=== PATIENT | female | born 1970 | race Caucasian/White ===

== ENCOUNTER 2018-01-16 16:16 | Inpatient (IN) | payer OTHER ==
--- NOTE | 2018-01-16 16:50 | PDOC ---
History of Present Illness - General Chief Complaint: Urinary Problem Stated Complaint: FEVER Time Seen by Provider: 01/16/18 16:33 History Source: Patient, Family - History of Present Illness Timing/Duration: reports: resolved prior to arrival Quality: reports: other (unable to describe) Past History - Past Medical History Allergies/Adverse Reactions: Allergies Allergy/AdvReac Type Severity Reaction Status Date / Time No Known Allergies Allergy Verified 01/16/18 16:32 Home Medications: Ambulatory Orders NK [No Known Home Medication] 01/16/18 - Suicide/Smoking/Psychosocial Hx Smoking History: Never smoked Have you smoked in the past 12 months: No Information on smoking cessation initiated: No Hx Alcohol Use: No Drug/Substance Use Hx: No Review of Systems - Review of Systems Constitutional: No: Chills, Fever ABD/GI: No: Blood Streaked Bowels, Constipated, Diarrhea, Nausea, Vomiting, Tarry Stools : No: Burning, Dysuria, Frequency, Flank Pain, Hematuria Musculoskeletal: No: Back Pain *Physical Exam - Vital Signs Last Vital Signs Temp Pulse Resp BP Pulse Ox 99.8 F H 82 16 121/69 100 01/16/18 16:27 01/16/18 16:27 01/16/18 16:27 01/16/18 16:27 01/16/18 16:27 - Physical Exam General Appearance: Yes: Appropriately Dressed. No: Apparent Distress HEENT: positive: Normal Voice Neck: positive: Supple Respiratory/Chest: negative: Respiratory Distress Gastrointestinal/Abdominal: positive: Normal Bowel Sounds, Soft. negative: Tender, Distended, Guarding Musculoskeletal: negative: CVA Tenderness Integumentary: positive: Dry, Warm Neurologic: positive: Fully Oriented, Alert, Normal Mood/Affect ED Treatment Course - LABORATORY CBC & Chemistry Diagram: 01/16/18 17:55 01/16/18 17:55 Medical Decision Making - Medical Decision Making 01/16/18 16:43 46 yo F, history of uterine cancer remotely, status post surgery, states she was dx w/ UTI 2 months ago at [facility] but stopped taking antibiotics after 4 days because "I didn't like it" per patient. States her dysuria did improve. Now presents with vague pelvic pain that started several hours ago and has since improved with tylenol. Denies any dysuria to me and no urinary frequency , hematuria, flank or back pain, nausea, vomiting, fever or chills. Is sexually active w/ only. No vag discharge or h/o STDs. States pain today was not similar to her prior UTI See exam R/o UTI s/p incompletely tx uti 2 months ago at [facility] Stable and well luisana w/ benign abd and no CVAT -ua/cx pending 01/16/18 17:23 UA negative. On reassessment, temperature now 102 F. Daughter now reports to me that patient's temperature was 104 F earlier today, but states they had forgotten to tell ED staff. Abdomen remains benign, but given documented fever , will place IV for labs and get CT scan 01/16/18 18:52 WBC of ~18. Pt transferred to main ED and signed out to Dr Dsouza pending CT r/o diverticulitis *DC/Admit/Observation/Transfer Diagnosis at time of Disposition: Pelvic pain - Referrals - Patient Instructions - Post Discharge Activity
[2018-01-16 17:01] LABS: HCG,QUALITATIVE URINE NEGATIVE
[2018-01-16 17:06] LABS: URINE APPEARANCE CLEAR; URINE BILIRUBIN NEGATIVE (<2.0 mg/dL); URINE COLOR STRAW; URINE GLUCOSE (UA) NEGATIVE (NEGATIVE); URINE KETONE NEGATIVE (NEGATIVE); URINE LEUK ESTERASE NEGATIVE (NEGATIVE); URINE NITRITE NEGATIVE (NEGATIVE); URINE PROTEIN NEGATIVE (NEGATIVE); URINE UROBILINOGEN NEGATIVE mg/dL (0.2-1.0)
[2018-01-16] MEDS ORDERED: IBUPROFEN 400 MG TABLET (FP) PO ONE ×2 (17:30→17:32)
[2018-01-16] MEDS ORDERED: SODIUM CHLORIDE 1,000 ML IV STA (17:32)
[2018-01-16 18:02] LABS: BASO % 0.3 % (0-2.0); EOS % 0.5 % (0-4.5); HEMOGLOBIN 13.7 GM/dL (10.7-15.3); MCH 24.5 pg (25.7-33.7); MCHC 32.5 g/dl (32.0-36.0); MEAN CELL VOLUME 75.2 fl (80-96); MEAN PLT VOLUME 7.6 fl (7.5-11.1); MONO % 3.9 % (3.8-10.2); NEUT % 86.3 % (42.8-82.8); PLATELET COUNT 244 K/MM3 (134-434); RBC 5.59 M/mm3 (3.60-5.2); RDW 15.1 % (11.6-15.6); WHITE BLOOD COUNT 15.8 K/mm3 (4.0-10.0)
[2018-01-16 18:28] LABS: ALBUMIN 3.9 g/dl (3.4-5.0); ALK PHOS 161 U/L (45-117); ANION GAP 9 (8-16); BILIRUBIN,TOTAL 0.3 mg/dL (0.2-1.0); BLOOD UREA NITROGEN 12 mg/dL (7-18); CHLORIDE 101 mmol/L (98-107); CO2 27 mmol/L (21-32); CREATININE 0.7 mg/dL (0.55-1.02); GLUCOSE,RANDOM 96 mg/dL (74-106); LIPASE 191 U/L (73-393); SGPT/ALT 48 U/L (12-78); SODIUM 137 mmol/L (136-145)
[2018-01-16 18:36] LABS: POTASSIUM 4.2 mmol/L (3.5-5.1); SGOT/AST 41 U/L (15-37)
--- NOTE | 2018-01-16 19:21 | PDOC ---
History of Present Illness - General Chief Complaint: Urinary Problem Stated Complaint: FEVER Time Seen by Provider: 01/16/18 16:33 - History of Present Illness Initial Comments: 01/16/18 19:59 47 yo F with h/o uterine cancer s/p partial hysterectomy (15 years ago), who p/ w lower abdominal and pelvic pain. 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 No identifiable triggers or alleviators. Pain now resolved. Fevers x 1 day, with Tmax 104 oral at home. Recent UTI x 2 months ago at [facility] with incomplete antibiotic course d/t medication non compliance. Patient denies N/V, CP, SOB, urinary complaints, hematuria, vaginal discharge/ bleeding, dyspareurnia, diarrhea, constipation, BPR, lightheadedness, weakness, sensory changes. PMHx: as noted above ROS: as noted SHx: Denies Etoh, IVDA, tobacco. Denies h/o STI. Allergies: NKDA Past History - Past Medical History Allergies/Adverse Reactions: Allergies Allergy/AdvReac Type Severity Reaction Status Date / Time No Known Allergies Allergy Verified 01/16/18 16:32 Home Medications: Ambulatory Orders NK [No Known Home Medication] 01/16/18 - Suicide/Smoking/Psychosocial Hx Smoking History: Never smoked Have you smoked in the past 12 months: No Information on smoking cessation initiated: No Hx Alcohol Use: No Drug/Substance Use Hx: No Review of Systems - Review of Systems Comments:: 01/16/18 20:08 GENERAL/CONSTITUTIONAL: No fever or chills. No weakness. HEAD, EYES, EARS, NOSE AND THROAT: No change in vision. No ear pain or discharge. No sore throat. CARDIOVASCULAR: No chest pain or shortness of breath RESPIRATORY: No cough, wheezing, or hemoptysis. GASTROINTESTINAL: + Abdominal pain. No nausea, vomiting, diarrhea or constipation. GENITOURINARY: No dysuria, frequency, or change in urination. MUSCULOSKELETAL: No joint or muscle swelling or pain. No neck or back pain. SKIN: No rash NEUROLOGIC: No headache, vertigo, loss of consciousness, or change in strength/ sensation. ENDOCRINE: No increased thirst. No abnormal weight change HEMATOLOGIC/LYMPHATIC: No anemia, easy bleeding, or history of blood clots. ALLERGIC/IMMUNOLOGIC: No hives or skin allergy. *Physical Exam - Vital Signs Last Vital Signs Temp Pulse Resp BP Pulse Ox 102.7 F H 82 16 121/69 100 01/16/18 17:55 01/16/18 16:27 01/16/18 16:27 01/16/18 16:27 01/16/18 16:27 - Physical Exam Comments: 01/16/18 20:08 GENERAL: Awake, alert, and fully oriented, in no acute distress HEAD: No signs of trauma, normocephalic, atraumatic EYES: PERRLA, EOMI, sclera anicteric, conjunctiva clear ENT: Hearing grossly normal, nares patent, oropharynx clear without exudates. Moist mucosa NECK: Normal ROM, supple, no lymphadenopathy, JVD, or masses LUNGS: No distress, speaks full sentences, clear to auscultation bilaterally HEART: Regular rate and rhythm, normal S1 and S2, no murmurs, rubs or gallops, peripheral pulses normal and equal bilaterally. ABDOMEN: Soft, nontender, normoactive bowel sounds. No guarding, no rebound. No masses. Neg CVA ttp. EXTREMITIES : Normal inspection, Normal range of motion, no edema. No clubbing or cyanosis. SKIN: Warm, Dry, normal turgor, no rashes or lesions noted ED Treatment Course - LABORATORY CBC & Chemistry Diagram: 01/16/18 17:55 01/16/18 17:55 - ADDITIONAL ORDERS Additional order review: Laboratory Results 01/16/18 01/16/18 17:55 16:40 Sodium 137 Potassium 4.2 Chloride 101 Carbon Dioxide 27 Anion Gap 9 BUN 12 Creatinine 0.7 Creat Clearance w eGFR > 60 Random Glucose 96 Calcium 9.0 Total Bilirubin 0.3 AST 41 H ALT 48 Alkaline Phosphatase 161 H Total Protein 9.0 H Albumin 3.9 Lipase 191 Urine Color Straw Urine Appearance Clear Urine pH 7.0 Ur Specific [place] 1.010 Urine Protein Negative Urine Glucose (UA) Negative Urine Ketones Negative Urine Blood Negative Urine Nitrite Negative Urine Bilirubin Negative Urine Urobilinogen Negative Ur Leukocyte Esterase Negative Urine HCG, Qual Negative 01/16/18 17:55 RBC 5.59 H MCV 75.2 L MCHC 32.5 RDW 15.1 MPV 7.6 Neutrophils % 86.3 H Lymphocytes % 9.0 Monocytes % 3.9 Eosinophils % 0.5 Basophils % 0.3 - Medications Given in the ED: ED Medications Discontinued Medications Generic Name Dose Route Start Last Admin Trade Name Guillermoq PRN Reason Stop Dose Admin Sodium Chloride 1,000 mls @ 1,000 mls/hr 01/16/18 17:32 01/16/18 18:31 Normal Saline - IV 01/16/18 18:31 1,000 mls/hr ASDIR STA Administration Ibuprofen 800 mg 01/16/18 17:30 01/16/18 17:52 Motrin - PO 01/16/18 17:31 800 mg ONCE ONE Administration Medical Decision Making - Medical Decision Making 01/16/18 20:39 47 yo F with h/o uterine cancer s/p partial hysterectomy, who p/w lower abdominal pain and pelvic pain. Temp 102.7, vitals otherwise wnl. Absent abdominal ttp. Will consider cystitis, ovarian torsion, diverticulitis, appendicitis, colitis, malignancy. Ed Course: LA, CBC, CMP UA, Urine Cx. 01/16/18 20:42 WBC: 15.8 UA: Neg CMP: Unremarkable 01/16/18 20:43 CT AP Unremarkable. + gallstones. 01/16/18 22:18 EKG: NSR with absent SHIRA, STD, or TWI. Nml interval duration and axis. 01/17/18 01:09 TVUS: Unremarkable RUQ U/S:Multiple gallstones without evidence of cholecystitis 01/17/18 02:30 Patient vommiting non bloody, bilious emesis. Continued abdominal pain Patient admitted to med/surg obs. Ifudu. *DC/Admit/Observation/Transfer Diagnosis at time of Disposition: Severe systemic inflammatory response syndrome (SIRS), Abdominal pain with vomiting Abdominal pain Qualifiers: Abdominal location: lower abdomen, unspecified Qualified Code(s): R10.30 - Lower abdominal pain, unspecified - Discharge Dispostion Decision to Admit order: Yes - Referrals - Patient Instructions - Post Discharge Activity
[2018-01-16] MEDS ORDERED: SODIUM CHLORIDE 0.9% 1000 ML INFUS.BAG IV STA (20:46)
[2018-01-16 22:40] LABS: VENOUS PC02 46.7 mmHg (38-52); VENOUS PH 7.31 (7.32-7.42); VENOUS PO2 28.8 mmHg (28-48)
[2018-01-16 22:59] LABS: INR 1.19 (0.82-1.09); PROTHROMBIN TIME (PATIENT) 13.5 SEC (9.7-13.0)
[2018-01-16 23:01] LABS: ACTIVATED PTT 32.6 SECONDS (25.2-36.5)
[2018-01-16] MEDS ORDERED: ONDANSETRON 4 MG/2 ML VIAL IVPB ONE (23:43)
[2018-01-16] MEDS ORDERED: ONDANSETRON 4 MG/2 ML VIAL ONE (23:51)
--- NOTE | 2018-01-17 01:58 | PDOC ---
Attending Attestation - Resident Resident Name: Vickey Dsouza - ED Attending Attestation I have performed the following: I have examined & evaluated the patient, The case was reviewed & discussed with the resident, I agree w/resident's findings & plan, Exceptions are as noted - HPI HPI: 01/17/18 01:49 47 yo female p/w fever and vomiting and lower abdominal pain head ncat neck supple lungs cta b/l cvs [id number] abd no guarding or rebound at this time neuro alert and conversant,no gross focal deficits - Physicial Exam PE: 01/17/18 17:00 wnwd 47 yo female who had fever ,abd pain and vomiting head ncat neck supple lungs cta b/l cvs [id number] abd no rebound,no guarding ext no e/c/c neuro axox3,no gross focal neruo deficits - Medical Decision Making 01/17/18 16:40 CONCERN FOR CHOLECYSTITIS,PT W VOMITING AND FEVER,ADMITTED
--- NOTE | 2018-01-17 02:38 | PN ---
Teaching Attending Note Name of Resident: Flaquito Doss ATTENDING PHYSICIAN STATEMENT I saw and evaluated the patient. I reviewed the resident's note and discussed the case with the resident. I agree with the resident's findings and plan as documented. SUBJECTIVE: Patient is a 47 year old woman with history of uterine cancer s/p partial hysterectomy (15 years ago), who presents with lower abdominal and pelvic pain. 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 No identifiable triggers or alleviators. Pain now resolved. Fevers x 1 day, with Tmax of 104 at home. Recent UTI x 2 months ago at [facility] with incomplete antibiotic course due to medication non compliance. She owns a cat and comes in frequent contact with her daughter' s dog. Patient denies nausea, CP, SOB, urinary complaints, hematuria, vaginal discharge/bleeding, dyspareurnia, constipation, BPR, lightheadedness, weakness, sensory changes. In the ER, she vomited once and had one loose foul smelling bowel movement. OBJECTIVE: Obese, alert and in no acute distress Vital Signs Period Temp Pulse Resp BP Sys/Tripp Pulse Ox Last 24 Hr 99.8 F-102.7 F 82 16 121/69 100 HEENT: No Jaundice, eye redness or discharge, PERRLA, EOMI. Normocephalic, atraumatic. External ears are normal and hearing is grossly intact. No nasal discharge. Neck: Supple, nontender. No palpable adenopathy or thyromegaly. No JVD Chest: Good effort. Clear to auscultation and percussion. Heart: Regular. No S3, rub or murmur Abdomen: Not distended, soft, lower abdominal tenderness (L>R); no HSM. No rebound or guarding. Normoactive bowel sounds. Ext: Peripheral pulses intact. No leg edema. Papular rash in both roins and axilla. Skin: Warm and dry. No petechiae, rash or ecchymosis. Neuro: Alert. Oriented x3. CN 2-12 grossly intact. Sensation grossly intact in all four extremities and DTR are symmetric. Home Medications Medication Instructions Recorded NK [No Known Home Medication] 01/16/18 Abnormal Lab Results 01/16/18 01/16/18 01/16/18 17:55 17:55 22:30 WBC 15.8 H RBC 5.59 H MCV 75.2 L MCH 24.5 L Neutrophils % 86.3 H PT with INR 13.50 H INR 1.19 H VBG pH AST 41 H Alkaline Phosphatase 161 H Total Protein 9.0 H 01/16/18 22:30 WBC RBC MCV MCH Neutrophils % PT with INR INR VBG pH 7.31 L AST Alkaline Phosphatase Total Protein ASSESSMENT AND PLAN: 1. SIRS - Source of infection is unclear. CT scan shows non obstructing gall stones and cholestasis and transvaginal ultrasound is unrevealing. LFTs are abnormal. Early cholecystitis, less likely cholangitis or gastroenteritis are possible culprits. Will send blood cultures, hepatitis serology (A, B, C), Lyme studies, stool for analyses including ova, parasites and C. Diff. Treat with Flagyl 500 mg IV q 8 ours and Levofloxacin 500 mg IV qd, IV NS at 75 ml/hour and trend LFTs. Consult GI and ID. Refer to Dermatology for groin and axillary rash upon discharge. Rash may be Intertrigo and she will be treated with mycostatin cream. 2. Obesity - Will provide patient all the necessary assistance, counseling and positive reinforcement to facilitate weight loss. Consult driver service technician. 3. DVT prophylaxis - Heparin 5000u sq tid. 4. Advance directives - Full code
--- NOTE | 2018-01-17 04:39 | HP ---
CHIEF COMPLAINT: Abdominal pain PCP: HISTORY OF PRESENT ILLNESS: 47 y/o female with PMH uterine cancer with partial oopherectomy 15 years ago, presents with complaint of abdominal pain. States pain began today, sudden in onset with associated fevers (104 measured at home), chills, billious vomiting, and one episode of watery diarrhea that was yellow-brown, and malodorous in the ED. Described as a "burning and stinging" spasmodic pain. Pain is diffuse within lower abdomen and radiates to her pelvis B/L. Denies prior occurrence of this pain. Took one tablet of Tylenol (unknown dosage) which was not palliative. Patient admits that abdominal pain resolved while in ED. Denies dizzyness, shortness of breath, palpitations, chest pain, constipation. ER course was notable for: (1) Iboprofen, Zofran (2) EKG, CXR, RUQ U/S, CT abdomen/ pelvis, transvainal US, UA, blood cultures, (3) Recent Travel: PAST MEDICAL HISTORY: Per HPI PAST SURGICAL HISTORY: Per HPI Social History: Smoking: denies Alcohol: denies Drugs: denies Family History: Allergies NKDA No Known Allergies Allergy (Verified 01/16/18 16:32) HOME MEDICATIONS: Home Medications Medication Instructions Recorded NK [No Known Home Medication] 01/16/18 REVIEW OF SYSTEMS As per HPI PHYSICAL EXAMINATION Vital Signs - 24 hr 01/16/18 01/16/18 01/17/18 16:27 17:55 04:01 Temperature 99.8 F H 102.7 F H 97.9 F Pulse Rate 82 Pulse Rate [ 66 Left Radial] Respiratory 16 16 Rate Blood Pressure 121/69 Blood Pressure 115/58 [Right Arm] O2 Sat by Pulse 100 100 Oximetry (%) GENERAL: Awake, alert, and fully oriented, in no acute distress. HEAD: Normal with no signs of trauma. EYES: Pupils equal, round and reactive to light, extraocular movements intact, sclera anicteric. EARS, NOSE, THROAT: Oropharynx clear without exudates. Moist mucous membranes. LUNGS: Breath sounds equal, clear to auscultation bilaterally. No wheezes, and no crackles. No accessory muscle use. HEART: Regular rate and rhythm, normal S1 and S2 without murmur, rub or gallop. ABDOMEN: Soft, not distended, normoactive bowel sounds. Tender to palpation LLQ , with referred tenderness to LLQ when palpating abdomen. No guarding, no rebound. No hepatomegaly or splenomegaly. MUSCULOSKELETAL: Normal range of motion at all joints. No bony deformities or tenderness. EXTREMITIES: 2+ pulses, warm, well-perfused. No cyanosis. No peripheral edema. NEUROLOGICAL: Cranial nerves II-XII intact. Normal speech. PSYCHIATRIC: Cooperative. Appropriate mood and affect. SKIN: Dark brown papules (?seborrheic keratosis) on B/L groin and axillae. Laboratory Results - last 24 hr 01/16/18 01/16/18 01/16/18 16:40 17:55 17:55 WBC 15.8 H RBC 5.59 H Hgb 13.7 Hct 42.0 MCV 75.2 L MCH 24.5 L MCHC 32.5 RDW 15.1 Plt Count 244 MPV 7.6 Absolute Neuts (auto) 13.6 Neutrophils % 86.3 H Lymphocytes % 9.0 Monocytes % 3.9 Eosinophils % 0.5 Basophils % 0.3 Nucleated RBC % 0 PT with INR INR PTT (Actin FS) VBG pH POC VBG pCO2 POC VBG pO2 Mixed VBG HCO3 Sodium 137 Potassium 4.2 Chloride 101 Carbon Dioxide 27 Anion Gap 9 BUN 12 Creatinine 0.7 Creat Clearance w eGFR > 60 Random Glucose 96 Lactic Acid Calcium 9.0 Total Bilirubin 0.3 AST 41 H ALT 48 Alkaline Phosphatase 161 H Troponin I Total Protein 9.0 H Albumin 3.9 Lipase 191 Urine Color Straw Urine Appearance Clear Urine pH 7.0 Ur Specific [place] 1.010 Urine Protein Negative Urine Glucose (UA) Negative Urine Ketones Negative Urine Blood Negative Urine Nitrite Negative Urine Bilirubin Negative Urine Urobilinogen Negative Ur Leukocyte Esterase Negative Urine HCG, Qual Negative 01/16/18 01/16/18 01/16/18 22:30 22:30 22:30 WBC RBC Hgb Hct MCV MCH MCHC RDW Plt Count MPV Absolute Neuts (auto) Neutrophils % Lymphocytes % Monocytes % Eosinophils % Basophils % Nucleated RBC % PT with INR 13.50 H INR 1.19 H PTT (Actin FS) 32.6 VBG pH 7.31 L POC VBG pCO2 46.7 POC VBG pO2 28.8 Mixed VBG HCO3 23.0 Sodium Potassium Chloride Carbon Dioxide Anion Gap BUN Creatinine Creat Clearance w eGFR Random Glucose Lactic Acid 1.2 Calcium Total Bilirubin AST ALT Alkaline Phosphatase Troponin I Total Protein Albumin Lipase Urine Color Urine Appearance Urine pH Ur Specific [place] Urine Protein Urine Glucose (UA) Urine Ketones Urine Blood Urine Nitrite Urine Bilirubin Urine Urobilinogen Ur Leukocyte Esterase Urine HCG, Qual 01/16/18 22:30 WBC RBC Hgb Hct MCV MCH MCHC RDW Plt Count MPV Absolute Neuts (auto) Neutrophils % Lymphocytes % Monocytes % Eosinophils % Basophils % Nucleated RBC % PT with INR INR PTT (Actin FS) VBG pH POC VBG pCO2 POC VBG pO2 Mixed VBG HCO3 Sodium Potassium Chloride Carbon Dioxide Anion Gap BUN Creatinine Creat Clearance w eGFR Random Glucose Lactic Acid Calcium Total Bilirubin AST ALT Alkaline Phosphatase Troponin I < 0.02 Total Protein Albumin Lipase Urine Color Urine Appearance Urine pH Ur Specific [place] Urine Protein Urine Glucose (UA) Urine Ketones Urine Blood Urine Nitrite Urine Bilirubin Urine Urobilinogen Ur Leukocyte Esterase Urine HCG, Qual ASSESSMENT/PLAN: 47 y/o female with PMH uterine cancer with partial oopherectomy 15 years ago, presents with complaint of abdominal pain. SIRS likely secondary to unclear etiology -WBC 5.8, Temp 102.7, BP 121/69, RR 16 -AST 41, ALT 48, Lactate 1.2 -CT abdomen/pelvis showed non obstructive cholecystitis -RUQ U/S shows liver 17.6 cm in length, gallbladder stones, CBD 6mm -Start Flagyl and Levoquin -IV NS 75ml/ hr -R/O hepatitis- f/u Hep A, B, C studies -Stool for ova, parasites, c.diff -F/U Lyme studies -GI consult -ID consult -Trend WBC, LFT New onset ?Seborrheic keratosis -Consider dermatology consult as outpatient Obesity -Sailing Instructor consult requested Propylaxis -Heparin 5000u subq TID FEN -IV NS 75ml/ hr -No electrolyte abnormalities at this time -NPO Advance directives: Full code Disposition: Admit to medical surgical floor Case discussed with insulation applicator attending Visit type - Emergency Visit Emergency Visit: Yes ED Registration Date: 01/17/18 Care time: The patient presented to the Emergency Department on the above date and was hospitalized for further evaluation of their emergent condition. - New Patient This patient is new to me today: Yes Date on this admission: 01/17/18 - Critical Care Critical Care patient: No Hospitalist Screening - Colonoscopy Questionnaire Colonoscopy Questionnaire: Colonoscopy Questionnaire - Patient: 50 - 75 years old and never had a screening colonoscopy: Unknown History of colon or rectal polyps, or CA: Unknown History of IBD, Crohn's disease or UC: Unknown History of abdominal radiation therapy as a child: Unknown - Relative: 1 with colon or rectal CA, or polyps at age 60 or younger: Unknown Colon or rectal CA diagnosed at age 45 or younger: Unknown Multiple relatives with colon or rectal CA: Unknown - Outcome: Screening Result: Negative Screen
[2018-01-17] MEDS: SODIUM CHLORIDE 1,000 ML IV SCH (05:30)
[2018-01-17] MEDS: HEPARIN NA (PORCINE) 5,000 UNITS/ML 1ML VIAL SQ SCH ×4 (06:05→21:06)
[2018-01-17] MEDS ORDERED: HEPARIN NA (PORCINE) 5,000 UNITS/ML 1ML VIAL ONE (06:12)
[2018-01-17] MEDS ORDERED: ACETAMINOPHEN 325 MG TABLET (FP) ONE (06:12)
[2018-01-17] MEDS ORDERED: ACETAMINOPHEN 325 MG TABLET (FP) PO PRN ×2 (08:58→09:00)
[2018-01-17 10:14] LABS: BASO % 0.2 % (0-2.0); HEMATOCRIT 34.3 % (32.4-45.2); HEMOGLOBIN 11.1 GM/dL (10.7-15.3); LYMPH % 12.5 % (8-40); MCH 24.7 pg (25.7-33.7); MCHC 32.3 g/dl (32.0-36.0); MEAN CELL VOLUME 76.4 fl (80-96); MEAN PLT VOLUME 7.7 fl (7.5-11.1); MONO % 3.2 % (3.8-10.2); NEUT % 84.1 % (42.8-82.8); PLATELET COUNT 200 K/MM3 (134-434); RBC 4.49 M/mm3 (3.60-5.2); RDW 15.3 % (11.6-15.6)
[2018-01-17 10:54] LABS: ANION GAP 8 (8-16); BLOOD UREA NITROGEN 6 mg/dL (7-18); CHLORIDE 109 mmol/L (98-107); CO2 24 mmol/L (21-32); GLUCOSE,RANDOM 99 mg/dL (74-106); POTASSIUM 3.5 mmol/L (3.5-5.1); SODIUM 141 mmol/L (136-145)
[2018-01-17 10:58] LABS: ALK PHOS 122 U/L (45-117); BILIRUBIN,TOTAL 0.4 mg/dL (0.2-1.0); CREATININE 0.5 mg/dL (0.55-1.02); SGOT/AST 35 U/L (15-37); SGPT/ALT 58 U/L (12-78)
--- NOTE | 2018-01-17 11:25 | EKG ---
Test Reason : Blood Pressure : / mmHG Vent. Rate : 065 BPM Atrial Rate : 065 BPM P-R Int : 150 ms QRS Dur : 082 ms QT Int : 442 ms P-R-T Axes : 038 074 051 degrees QTc Int : 459 ms NORMAL SINUS RHYTHM NORMAL ECG NO PREVIOUS ECGS AVAILABLE Confirmed by LORENZO ARAUZ, MARISSA ([id number]) on 01/17/2018 11:25:26 AM Referred By: Confirmed By:MARISSA VENTURA MD
--- NOTE | 2018-01-17 13:54 | PN ---
Physical Exam: SUBJECTIVE: Patient is a 47 y/o female with a history of uterine Ca and partial oopherectomy who presents with sepsis 2/2 to cholecystitis vs. UTI. Patient reports shes feeling better, denies fever, chills, nausea, or vomiting. She reports she has a headache. Patient denies any traveling or any change in diet. OBJECTIVE: Vital Signs Period Temp Pulse Resp BP Sys/Tripp Pulse Ox Last 24 Hr 97.9 F-102.7 F 66-82 16-16 114-121/58-69 98-100 GENERAL: The patient is awake, alert, and fully oriented, in no acute distress. EYES: PERRL, extraocular movements intact, NECK: Trachea midline, full range of motion, LUNGS: Breath sounds equal, clear to auscultation bilaterally HEART: Regular rate and rhythm, ABDOMEN: Soft, nontender, nondistended, normoactive bowel sounds EXTREMITIES: 2+ pulses, warm, well-perfused, no edema. SKIN: Warm, dry, normal turgor, no rashes or lesions noted Laboratory Results - last 24 hr 01/16/18 01/16/18 01/16/18 16:40 17:55 17:55 WBC 15.8 H RBC 5.59 H Hgb 13.7 Hct 42.0 MCV 75.2 L MCH 24.5 L MCHC 32.5 RDW 15.1 Plt Count 244 MPV 7.6 Absolute Neuts (auto) 13.6 Neutrophils % 86.3 H Lymphocytes % 9.0 Monocytes % 3.9 Eosinophils % 0.5 Basophils % 0.3 Nucleated RBC % 0 PT with INR INR PTT (Actin FS) VBG pH POC VBG pCO2 POC VBG pO2 Mixed VBG HCO3 Sodium 137 Potassium 4.2 Chloride 101 Carbon Dioxide 27 Anion Gap 9 BUN 12 Creatinine 0.7 Creat Clearance w eGFR > 60 Random Glucose 96 Lactic Acid Calcium 9.0 Total Bilirubin 0.3 AST 41 H ALT 48 Alkaline Phosphatase 161 H Troponin I Total Protein 9.0 H Albumin 3.9 Lipase 191 Urine Color Straw Urine Appearance Clear Urine pH 7.0 Ur Specific [place] 1.010 Urine Protein Negative Urine Glucose (UA) Negative Urine Ketones Negative Urine Blood Negative Urine Nitrite Negative Urine Bilirubin Negative Urine Urobilinogen Negative Ur Leukocyte Esterase Negative Urine HCG, Qual Negative 01/16/18 01/16/18 01/16/18 22:30 22:30 22:30 WBC RBC Hgb Hct MCV MCH MCHC RDW Plt Count MPV Absolute Neuts (auto) Neutrophils % Lymphocytes % Monocytes % Eosinophils % Basophils % Nucleated RBC % PT with INR 13.50 H INR 1.19 H PTT (Actin FS) 32.6 VBG pH 7.31 L POC VBG pCO2 46.7 POC VBG pO2 28.8 Mixed VBG HCO3 23.0 Sodium Potassium Chloride Carbon Dioxide Anion Gap BUN Creatinine Creat Clearance w eGFR Random Glucose Lactic Acid 1.2 Calcium Total Bilirubin AST ALT Alkaline Phosphatase Troponin I Total Protein Albumin Lipase Urine Color Urine Appearance Urine pH Ur Specific [place] Urine Protein Urine Glucose (UA) Urine Ketones Urine Blood Urine Nitrite Urine Bilirubin Urine Urobilinogen Ur Leukocyte Esterase Urine HCG, Qual 01/16/18 01/17/18 01/17/18 22:30 09:30 09:30 WBC 10.0 RBC 4.49 Hgb 11.1 Hct 34.3 D MCV 76.4 L MCH 24.7 L MCHC 32.3 RDW 15.3 Plt Count 200 MPV 7.7 Absolute Neuts (auto) 8.4 Neutrophils % 84.1 H Lymphocytes % 12.5 D Monocytes % 3.2 L Eosinophils % 0.0 D Basophils % 0.2 Nucleated RBC % 0 PT with INR INR PTT (Actin FS) VBG pH POC VBG pCO2 POC VBG pO2 Mixed VBG HCO3 Sodium 141 Potassium 3.5 Chloride 109 H Carbon Dioxide 24 Anion Gap 8 BUN 6 L Creatinine 0.5 L Creat Clearance w eGFR > 60 Random Glucose 99 Lactic Acid Calcium 8.0 L Total Bilirubin 0.4 AST 35 ALT 58 Alkaline Phosphatase 122 H D Troponin I < 0.02 Total Protein 7.0 D Albumin 3.0 L Lipase Urine Color Urine Appearance Urine pH Ur Specific [place] Urine Protein Urine Glucose (UA) Urine Ketones Urine Blood Urine Nitrite Urine Bilirubin Urine Urobilinogen Ur Leukocyte Esterase Urine HCG, Qual Active Medications Generic Name Dose Route Start Last Admin Trade Name Freq PRN Reason Stop Dose Admin Acetaminophen 650 mg 01/17/18 09:00 Tylenol - PO Q6H PRN Fever Or Pain Heparin Sodium (Porcine) 5,000 unit 01/17/18 06:00 01/17/18 06:05 Heparin - SQ 5,000 unit TID ANAY Administration Sodium Chloride 1,000 mls @ 75 mls/hr 01/17/18 04:30 07/23/18 05:30 Normal Saline - IV 75 mls/hr ASDIR ANAY Administration Metronidazole 500 mg in 100 mls @ 100 mls/hr 01/17/18 05:15 01/17/18 10:02 Flagyl 500mg Premixed Ivpb - IVPB 100 mls/hr Q8H-IV ANAY Administration Levofloxacin 500 mg in 100 mls @ 100 mls/hr 01/17/18 10:00 01/17/18 13:02 Levaquin 500 Mg Premixed Ivpb - IVPB 100 mls/hr DAILY ANAY Administration Protocol ASSESSMENT/PLAN: Patient is a 47 y/o female with a history of uterine Ca and partial oopherectomy who presents with sepsis 2/2 to cholecystitis vs. UTI. #sepsis 2/2 to UTI vs gastritis vs cholecystisis - WBC: 10 - afebrile - f/u HIDA scan - continue Flagyl 500 mg and Levaquin 500 mg - f/u hepatitis pannel, Lyme disease - Cx positive, organism pending - pelvic US: no fibroids, no R ovary - abd US: liver mildly fatty - CT abd/ pelvis : cholelithiasis, sludge present - history of frequent UTI's. most recent 2 months ago, UA negative - HIDA scan: no filling of the gallbladder, 2/2 to acute cholecystits or severe cholecystis - f/u surgery consult Dr. Zavaleta #DVT ppx - heparin TID #FEN - NS @ 75 Dispo: Visit type - Emergency Visit Emergency Visit: Yes ED Registration Date: 01/17/18 Care time: The patient presented to the Emergency Department on the above date and was hospitalized for further evaluation of their emergent condition. - New Patient This patient is new to me today: Yes Date on this admission: 01/17/18 - Critical Care Critical Care patient: No
--- NOTE | 2018-01-17 15:13 | PN ---
Progress Note (short form) - Note Progress Note: ID consult dictated Fever/SIRS unclear source sudden onset high grade fever with abdominal pain yesterday afternoon abdominal pain has resolved vomiting in ED, now resolved no diarrhea no travel no sick contacts w/u to date leukocytosis fever improved sono with cholelithiasis ct scan abd/pelvis and hida scan pending cultures rocephin/flagyl would try to avoid quinolones if possible further reccd to follow Problem List - Problems (1) Severe systemic inflammatory response syndrome (SIRS) Code(s): R65.10 - SIRS OF NON-INFECTIOUS ORIGIN W/O ACUTE ORGAN DYSFUNCTION (2) Pelvic pain Code(s): R10.2 - PELVIC AND PERINEAL PAIN
--- NOTE | 2018-01-17 16:57 | CONS ---
INFECTIOUS DISEASE CONSULTATION REQUESTED BY: Hospitalist Service DATE OF CONSULTATION: DATE OF DICTATION: 01/17/2018 HISTORY OF PRESENT ILLNESS: This is a 47-year-old woman with past medical history of uterine cancer. She is status post partial hysterectomy 15 years ago. Yesterday afternoon after lunch she developed the sudden onset of fever and abdominal pain. The family reports fever as high at 104 at home. They brought her to the emergency room. She had several episodes of vomiting, had abdominal pain. Vomiting resolved. She had no diarrhea. She denies any dysuria. She has no headache. She otherwise feels well. She was made n.p.o. and abdominal workup was initiated. Her white count was noted to be 15,000. She had a CAT scan of her abdomen and pelvis, the results of which are pending. She had a sonogram which showed cholelithiasis. She just returned from HIDA scan, the results of which are pending. She had a transvaginal ultrasound as well that was unremarkable and she had a chest x-ray that was unremarkable. She was started on Levaquin and Flagyl and I am asked to see her for further recommendations. Culture has been sent. She is currently resting comfortably. Apparently her family brought her food to eat after the HIDA scan and she tolerated food. She has no further vomiting or abdominal pain. PAST MEDICAL HISTORY: Notable for history of UTI in the past. She has a history of uterine cancer. There is no history of any diabetes. SURGICAL HISTORY: Notable for partial hysterectomy. ALLERGIES: She has no known drug allergies. MEDICATIONS: She takes no medications. She does not have a doctor. SOCIAL HISTORY: She is originally from [place]. 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 REVIEW OF SYSTEMS: Her vomiting has stopped. Abdominal pain has resolved. PHYSICAL EXAM: General: She is awake and alert, resting comfortably. Vital Signs: Temperature is 99.3, T-Max 102.7. Pulse of 78. Blood pressure 114/58. Respiratory rate 16. She is saturating 98% on room air. HEENT: She is normocephalic. Eyes anicteric. Neck: Supple. Lungs: Clear to auscultation. Heart: Regular rate and rhythm. Abdomen: Soft, nontender. She has no pelvic or upper quadrant pain. Extremities: Without edema. STUDIES: White count on admission was 15.8, this morning is 10. Hemoglobin is 11.1, platelet count 200,000. BUN 6, creatinine 0.5. LFTs are normal except for an alkaline phosphatase of 122, which is improved from 161 on admission. Urinalysis is negative. Blood cultures and urine cultures are pending. Imaging as previous stated. SUMMARY: This is a 47-year-old woman with fever, systemic inflammatory response system (SIRS) but unclear of the source. Workup is in progress. We are awaiting CAT scan and HIDA scan. Will cover her with Rocephin and Flagyl for intraabdominal coverage. We will try to avoid quinolones if possible. Further recommendations to follow. Maria Guadalupe HARO/[id number]
--- NOTE | 2018-01-17 18:47 | PN ---
Teaching Attending Note Name of Resident: Felicia Brand ATTENDING PHYSICIAN STATEMENT I saw and evaluated the patient. I reviewed the resident's note and discussed the case with the resident. I agree with the resident's findings and plan as documented. SUBJECTIVE: Patient is comfortbale , felt better after eating a hambergur. OBJECTIVE: Vital Signs Temperature 99.4 F 01/17/18 15:22 Pulse Rate 66 01/17/18 15:22 Respiratory Rate 20 01/17/18 16:53 Blood Pressure 97/54 01/17/18 15:22 O2 Sat by Pulse Oximetry (%) 98 01/17/18 16:53 CBCD WBC 10.0 K/mm3 (4.0-10.0) 01/17/18 09:30 RBC 4.49 M/mm3 (3.60-5.2) 01/17/18 09:30 Hgb 11.1 GM/dL (10.7-15.3) 01/17/18 09:30 Hct 34.3 % (32.4-45.2) D 01/17/18 09:30 MCV 76.4 fl (80-96) L 01/17/18 09:30 MCHC 32.3 g/dl (32.0-36.0) 01/17/18 09:30 RDW 15.3 % (11.6-15.6) 01/17/18 09:30 Plt Count 200 K/MM3 (134-434) 01/17/18 09:30 MPV 7.7 fl (7.5-11.1) 01/17/18 09:30 CMP Sodium 141 mmol/L (136-145) 01/17/18 09:30 Potassium 3.5 mmol/L (3.5-5.1) 01/17/18 09:30 Chloride 109 mmol/L (98-107) H 01/17/18 09:30 Carbon Dioxide 24 mmol/L (21-32) 01/17/18 09:30 Anion Gap 8 (8-16) 01/17/18 09:30 BUN 6 mg/dL (7-18) L 01/17/18 09:30 Creatinine 0.5 mg/dL (0.55-1.02) L 01/17/18 09:30 Creat Clearance w eGFR > 60 (>60) 01/17/18 09:30 Random Glucose 99 mg/dL (74-106) 01/17/18 09:30 Calcium 8.0 mg/dL (8.5-10.1) L 01/17/18 09:30 Total Bilirubin 0.4 mg/dL (0.2-1.0) 01/17/18 09:30 AST 35 U/L (15-37) 01/17/18 09:30 ALT 58 U/L (12-78) 01/17/18 09:30 Alkaline Phosphatase 122 U/L (45-117) H D 01/17/18 09:30 Total Protein 7.0 g/dl (6.4-8.2) D 01/17/18 09:30 Albumin 3.0 g/dl (3.4-5.0) L 01/17/18 09:30 CARDIAC ENZYMES Troponin I < 0.02 ng/ml (0.00-0.05) 01/16/18 22:30 Current Medications Generic Name Dose Route Start Last Admin Trade Name Freq PRN Reason Stop Dose Admin Acetaminophen 650 mg 01/17/18 09:00 Tylenol - PO Q6H PRN Fever Or Pain Heparin Sodium (Porcine) 5,000 unit 01/17/18 06:00 01/17/18 14:13 Heparin - SQ 5,000 unit TID ANAY Administration Sodium Chloride 1,000 mls @ 75 mls/hr 01/17/18 04:30 01/17/18 05:30 Normal Saline - IV 75 mls/hr ASDIR ANAY Administration Metronidazole 500 mg in 100 mls @ 100 mls/hr 01/17/18 05:15 01/17/18 18:23 Flagyl 500mg Premixed Ivpb - IVPB 100 mls/hr Q8H-IV ANAY Administration Ceftriaxone Sodium 2 gm/ 100 mls @ 200 mls/hr 01/18/18 10:00 Dextrose IVPB DAILY ANAY Protocol Home Medications Medication Instructions Recorded NK [No Known Home Medication] 01/16/18 PE: per resident's note. No abdominal pain in all quadrants. CLINICAL INDICATION: 47-year-old female with cholelithiasis and clinical suspicion of acute cholecystitis TECHNIQUE: Following the intravenous administration of 6.6 mCi of Tc 99M of Choletec, dynamic images of the abdomen in the anterior projection were obtained through 120minutes. COMPARISON: Ultrasound of the abdomen dated January 17, 2018 FINDINGS: There is normal homogeneous perfusion of the liver with no evidence of focal lesion. Extraction of tracer from the blood pool by the liver parenchyma is normal. Tracer appears promptly and within the biliary tree. The gallbladder does not fill with tracer after 2 hours of imaging. Tracer in the small bowel is first seen at 15minutes. IMPRESSION: No filling of the gallbladder after 2 hours of imaging. Further imaging could not be performed as there was complete biliary enteric transit of tracer. The findings could be secondary to acute cholecystitis or severe chronic cholecystitis. Reported By: Bryant Biggs MD 01/17/18 0120 ASSESSMENT AND PLAN: # Acute vs chronic severe chronic cholecystitis: On IV antibiotic Flagyl/ rocephin continue, further managment as per Surgery. DVt Px:Heparin
[2018-01-18] MEDS: SODIUM CHLORIDE 1,000 ML IV SCH ×2 (05:48→18:30)
[2018-01-18 07:06] LABS: ANION GAP 8 (8-16); BLOOD UREA NITROGEN 8 mg/dL (7-18); CALCIUM 8.1 mg/dL (8.5-10.1); CHLORIDE 111 mmol/L (98-107); CO2 25 mmol/L (21-32); CREATININE 0.5 mg/dL (0.55-1.02); GLUCOSE,RANDOM 112 mg/dL (74-106); POTASSIUM 3.6 mmol/L (3.5-5.1); SODIUM 144 mmol/L (136-145)
[2018-01-18] MEDS ORDERED: INSULIN (LEVEMIR) 100 UNITS/ML UNITS SQ ONE (07:30)
[2018-01-18] MEDS ORDERED: INSULIN (NOVOLOG) ASPART 100 UNITS/ML 10ML VIAL ONE (07:30)
[2018-01-18 08:12] LABS: MCH 24.6 pg (25.7-33.7); MCHC 32.3 g/dl (32.0-36.0); MEAN CELL VOLUME 76.2 fl (80-96); PLATELET COUNT 195 K/MM3 (134-434); RBC 4.46 M/mm3 (3.60-5.2); RDW 15.2 % (11.6-15.6); WHITE BLOOD COUNT 5.7 K/mm3 (4.0-10.0)
--- NOTE | 2018-01-18 09:41 | PN ---
Progress Note (short form) - Note Progress Note: hida scan noted- no GB filling, awaiting surgery evaluation no abdominal pain Vital Signs Period Temp Pulse Resp BP Sys/Tripp Pulse Ox Last 24 Hr 98.3 F-99.4 F 62-70 18-20 96-103/54-69 98-98 cor-rrr llungs clear abd soft,nt ext no edema CBC, BMP 01/18/18 05:55 01/18/18 05:55 Microbiology 01/16/18 16:40 Urine - Urine Clean Catch Urine Culture - Final 01/16/18 22:30 Blood - Peripheral Venous Blood Culture - Preliminary NO GROWTH OBTAINED AFTER 24 HOURS, INCUBATION TO CONTINUE FOR 4 DAYS. 01/16/18 22:30 Blood - Peripheral Venous Blood Culture - Preliminary NO GROWTH OBTAINED AFTER 24 HOURS, INCUBATION TO CONTINUE FOR 4 DAYS. a/p fever /abdominal pain cholycystitis continue ceftriaxone and flagyl surgical evaluation pending Problem List - Problems (1) Severe systemic inflammatory response syndrome (SIRS) Code(s): R65.10 - SIRS OF NON-INFECTIOUS ORIGIN W/O ACUTE ORGAN DYSFUNCTION (2) Pelvic pain Code(s): R10.2 - PELVIC AND PERINEAL PAIN
[2018-01-18] MEDS ORDERED: DEXTROSE 5%-WATER 100 ML IVPB ONE (09:53)
[2018-01-18] MEDS: CEFTRIAXONE 2 GM in DEXTROSE 5%-WATER 100 ML IVPB SCH (10:12)
--- NOTE | 2018-01-18 13:08 | PN ---
Teaching Attending Note Name of Resident: Felicia Brand ATTENDING PHYSICIAN STATEMENT I saw and evaluated the patient. I reviewed the resident's note and discussed the case with the resident. I agree with the resident's findings and plan as documented. SUBJECTIVE: Patient is comfortable with no acute distress No shortness of breath, no nausea or vomiting. Denies having any epigastric pain. had a hamburger yesterday. OBJECTIVE: Vital Signs Temperature 98.1 F 01/18/18 09:50 Pulse Rate 60 01/18/18 09:50 Respiratory Rate 18 01/18/18 09:50 Blood Pressure 103/64 01/18/18 09:50 O2 Sat by Pulse Oximetry (%) 98 01/17/18 21:00 CBCD WBC 5.7 K/mm3 (4.0-10.0) 01/18/18 05:55 RBC 4.46 M/mm3 (3.60-5.2) 01/18/18 05:55 Hgb 11.0 GM/dL (10.7-15.3) 01/18/18 05:55 Hct 34.0 % (32.4-45.2) 01/18/18 05:55 MCV 76.2 fl (80-96) L 01/18/18 05:55 MCHC 32.3 g/dl (32.0-36.0) 01/18/18 05:55 RDW 15.2 % (11.6-15.6) 01/18/18 05:55 Plt Count 195 K/MM3 (134-434) 01/18/18 05:55 MPV 8.0 fl (7.5-11.1) 01/18/18 05:55 CMP Sodium 144 mmol/L (136-145) 01/18/18 05:55 Potassium 3.6 mmol/L (3.5-5.1) 01/18/18 05:55 Chloride 111 mmol/L (98-107) H 01/18/18 05:55 Carbon Dioxide 25 mmol/L (21-32) 01/18/18 05:55 Anion Gap 8 (8-16) 01/18/18 05:55 BUN 8 mg/dL (7-18) 01/18/18 05:55 Creatinine 0.5 mg/dL (0.55-1.02) L 01/18/18 05:55 Creat Clearance w eGFR > 60 (>60) 01/18/18 05:55 Random Glucose 112 mg/dL (74-106) H 01/18/18 05:55 Calcium 8.1 mg/dL (8.5-10.1) L 01/18/18 05:55 Total Bilirubin 0.4 mg/dL (0.2-1.0) 01/17/18 09:30 AST 35 U/L (15-37) 01/17/18 09:30 ALT 58 U/L (12-78) 01/17/18 09:30 Alkaline Phosphatase 122 U/L (45-117) H D 01/17/18 09:30 Total Protein 7.0 g/dl (6.4-8.2) D 01/17/18 09:30 Albumin 3.0 g/dl (3.4-5.0) L 01/17/18 09:30 CARDIAC ENZYMES Troponin I < 0.02 ng/ml (0.00-0.05) 01/16/18 22:30 Current Medications Generic Name Dose Route Start Last Admin Trade Name Freq PRN Reason Stop Dose Admin Acetaminophen 650 mg 01/17/18 09:00 01/17/18 21:02 Tylenol - PO 650 mg Q6H PRN Administration Fever Or Pain Heparin Sodium (Porcine) 5,000 unit 01/17/18 06:00 01/17/18 21:06 Heparin - SQ Not Given TID ANAY Sodium Chloride 1,000 mls @ 75 mls/hr 01/17/18 04:30 01/18/18 05:48 Normal Saline - IV 75 mls/hr ASDIR ANAY Administration Metronidazole 500 mg in 100 mls @ 100 mls/hr 01/17/18 05:15 01/18/18 10:11 Flagyl 500mg Premixed Ivpb - IVPB 100 mls/hr Q8H-IV ANAY Administration Ceftriaxone Sodium 2 gm/ 100 mls @ 200 mls/hr 01/18/18 10:00 01/18/18 10:12 Dextrose IVPB 200 mls/hr DAILY ANAY Administration Protocol Home Medications Medication Instructions Recorded NK [No Known Home Medication] 01/16/18 PE: no abdominal pain on palpation. Rest of PE per residetn's note CLINICAL INDICATION: 47-year-old female with cholelithiasis and clinical suspicion of acute cholecystitis TECHNIQUE: Following the intravenous administration of 6.6 mCi of Tc 99M of Choletec, dynamic images of the abdomen in the anterior projection were obtained through 120minutes. COMPARISON: Ultrasound of the abdomen dated January 17, 2018 FINDINGS: There is normal homogeneous perfusion of the liver with no evidence of focal lesion. Extraction of tracer from the blood pool by the liver parenchyma is normal. Tracer appears promptly and within the biliary tree. The gallbladder does not fill with tracer after 2 hours of imaging. Tracer in the small bowel is first seen at 15minutes. IMPRESSION: No filling of the gallbladder after 2 hours of imaging. Further imaging could not be performed as there was complete biliary enteric transit of tracer. The findings could be secondary to acute cholecystitis or severe chronic cholecystitis. Reported By: Bryant Biggs MD 01/17/18 6905 ASSESSMENT AND PLAN: Patient is a 47 year old woman with history of uterine cancer s/p partial hysterectomy (15 years ago), who presents with lower abdominal and pelvic pain. # Acute vs chronic severe chronic cholecystitis: On IV antibiotic Flagyl/ rocephin continue, further management as per Surgery. DVT Px: :Heparin sq
--- NOTE | 2018-01-18 14:00 | PN ---
Physical Exam: SUBJECTIVE: Patient is a 47 y/o female with a history of uterine Ca and partial oopherectomy who presents with sepsis 2/2 to cholecystitis. Patient has no complaints at this time. She reports she is hungry. No acute events overnight. OBJECTIVE: Vital Signs Period Temp Pulse Resp BP Sys/Tripp Pulse Ox Last 24 Hr 98.1 F-99.4 F 60-70 18-20 96-103/54-69 98-98 GENERAL: The patient is awake, alert, and fully oriented, in no acute distress. EYES: PERRL, extraocular movements intact, NECK: Trachea midline, full range of motion, LUNGS: Breath sounds equal, clear to auscultation bilaterally HEART: Regular rate and rhythm, ABDOMEN: Soft, nontender, nondistended, normoactive bowel sounds EXTREMITIES: 2+ pulses, warm, well-perfused, no edema. SKIN: Warm, dry, normal turgor, no rashes or lesions noted Laboratory Results - last 24 hr 01/18/18 01/18/18 05:55 05:55 WBC 5.7 RBC 4.46 Hgb 11.0 Hct 34.0 MCV 76.2 L MCH 24.6 L MCHC 32.3 RDW 15.2 Plt Count 195 MPV 8.0 Sodium 144 Potassium 3.6 Chloride 111 H Carbon Dioxide 25 Anion Gap 8 BUN 8 Creatinine 0.5 L Creat Clearance w eGFR > 60 Random Glucose 112 H Calcium 8.1 L Active Medications Generic Name Dose Route Start Last Admin Trade Name Freq PRN Reason Stop Dose Admin Acetaminophen 650 mg 01/17/18 09:00 01/17/18 21:02 Tylenol - PO 650 mg Q6H PRN Administration Fever Or Pain Heparin Sodium (Porcine) 5,000 unit 01/17/18 06:00 01/17/18 21:06 Heparin - SQ Not Given TID ANAY Sodium Chloride 1,000 mls @ 75 mls/hr 01/17/18 04:30 01/18/18 05:48 Normal Saline - IV 75 mls/hr ASDIR ANAY Administration Metronidazole 500 mg in 100 mls @ 100 mls/hr 01/17/18 05:15 01/18/18 10:11 Flagyl 500mg Premixed Ivpb - IVPB 100 mls/hr Q8H-IV ANAY Administration Ceftriaxone Sodium 2 gm/ 100 mls @ 200 mls/hr 01/18/18 10:00 01/18/18 10:12 Dextrose IVPB 200 mls/hr DAILY ANAY Administration Protocol ASSESSMENT/PLAN: Patient is a 47 y/o female with a history of uterine Ca and partial oopherectomy who presents with sepsis 2/2 to cholecystitis. #sepsis 2/2 to UTI vs gastritis vs cholecystisis - WBC: 5.7 - afebrile - HIDA scan: no filling of the gallbladder, could be secondary to acute cholecystitis or severe chronic cholecysitits - continue Flagyl 500 mg and Levaquin 500 mg (day 2) - f/u hepatitis pannel, Lyme disease - Cx positive, organism pending - pelvic US: no fibroids, no R ovary - abd US: liver mildly fatty - CT abd/ pelvis : cholelithiasis, sludge present - surgery consult Dr. Zavaleta: cholecystectomy tomorrow 01/19 - NPO at midnight #DVT ppx - heparin TID, held for morning #FEN - NS @ 75 Dispo: f/u after surgery Visit type - Emergency Visit Emergency Visit: No - New Patient This patient is new to me today: No - Critical Care Critical Care patient: No
[2018-01-18] MEDS: HEPARIN NA (PORCINE) 5,000 UNITS/ML 1ML VIAL SQ SCH ×2 (14:28→21:07)
[2018-01-18 14:33] VITALS: BMI 32.8
--- NOTE | 2018-01-18 15:10 | PN ---
Progress Note (short form) - Note Progress Note: Attending Surgeon For lap [place] possible open 01/19/18; r/b/t/a's d/w the patient in [place] and she will give informed consent. Cruz Zavaleta MD FACS
[2018-01-18 19:57] LABS: ANION GAP 10 (8-16); BLOOD UREA NITROGEN 8 mg/dL (7-18); CALCIUM 8.2 mg/dL (8.5-10.1); CHLORIDE 111 mmol/L (98-107); CO2 24 mmol/L (21-32); CREATININE 0.5 mg/dL (0.55-1.02); GLUCOSE,RANDOM 112 mg/dL (74-106); POTASSIUM 3.3 mmol/L (3.5-5.1); SODIUM 145 mmol/L (136-145)
[2018-01-19 00:10] LABS: HBSAG SCREEN Negative (Negative); HEP A AB, IGM Negative (Negative); HEP B CORE AB, TOT Negative (Negative)
[2018-01-19] MEDS: POTASSIUM CHLORIDE 10 MEQ in SODIUM CHLORIDE 100 ML IVPB SCH ×2 (03:28→04:43)
[2018-01-19] MEDS ORDERED: POTASSIUM CHLORIDE TABS 20 MEQ TABLET.ER (FP) PO ONE (04:41)
[2018-01-19] MEDS: SODIUM CHLORIDE 1,000 ML IV SCH (05:01)
[2018-01-19 08:32] LABS: ALBUMIN 2.8 g/dl (3.4-5.0); ANION GAP 8 (8-16); BILIRUBIN,TOTAL 0.1 mg/dL (0.2-1.0); BLOOD UREA NITROGEN 9 mg/dL (7-18); CALCIUM 7.9 mg/dL (8.5-10.1); CHLORIDE 111 mmol/L (98-107); CO2 24 mmol/L (21-32); CREATININE 0.5 mg/dL (0.55-1.02); GLUCOSE,RANDOM 110 mg/dL (74-106); POTASSIUM 4.1 mmol/L (3.5-5.1); SGOT/AST 17 U/L (15-37); SGPT/ALT 40 U/L (12-78); SODIUM 143 mmol/L (136-145); TOT PROT 6.8 g/dl (6.4-8.2)
[2018-01-19 08:33] LABS: ALK PHOS 108 U/L (45-117)
[2018-01-19] MEDS ORDERED: DEXTROSE 5%-WATER 100 ML IVPB ONE (09:52)
[2018-01-19] MEDS: CEFTRIAXONE 2 GM in DEXTROSE 5%-WATER 100 ML IVPB SCH (09:54)
--- NOTE | 2018-01-19 11:22 | PN ---
Progress Note (short form) - Note Progress Note: for OR today no complaints Vital Signs Period Temp Pulse Resp BP Sys/Tripp Pulse Ox Last 24 Hr 97.8 F-98.5 F 56-67 18-18 93-115/53-66 98 cor-rrr lungs clear abd soft,nt ext no edema CBC, BMP 01/18/18 05:55 01/19/18 07:52 Microbiology 01/16/18 22:30 Blood - Peripheral Venous Blood Culture - Preliminary NO GROWTH OBTAINED AFTER 48 HOURS, INCUBATION TO CONTINUE FOR 3 DAYS. 01/16/18 22:30 Blood - Peripheral Venous Blood Culture - Preliminary NO GROWTH OBTAINED AFTER 48 HOURS, INCUBATION TO CONTINUE FOR 3 DAYS. 01/16/18 16:40 Urine - Urine Clean Catch Urine Culture - Final a/p fever /abdominal pain cholycystitis continue ceftriaxone and flagyl for surgery today Problem List - Problems (1) Severe systemic inflammatory response syndrome (SIRS) Code(s): R65.10 - SIRS OF NON-INFECTIOUS ORIGIN W/O ACUTE ORGAN DYSFUNCTION (2) Pelvic pain Code(s): R10.2 - PELVIC AND PERINEAL PAIN
[2018-01-19] MEDS ORDERED: MIDAZOLAM HCL 2 MG/2 ML SINGLE DOSE VIAL ONE (13:26)
[2018-01-19] MEDS ORDERED: PROPOFOL 20 ML ONE (13:26)
[2018-01-19] MEDS ORDERED: DEXAMETHASONE SOD PHOSPHATE 4 MG/1 ML VIAL ONE (13:26)
[2018-01-19] MEDS ORDERED: LACTATED RINGERS SOLUTION 1,000 ML IV SCH (14:00)
[2018-01-19] MEDS ORDERED: BUPIVACAINE HCL/PF 0.5% (5MG/ML) 10 ML VIAL IJ ONE ×2 (14:41→14:55)
[2018-01-19] MEDS ORDERED: GLYCOPYRROLATE 0.2 MG/1 ML VIAL ONE (14:50)
[2018-01-19] MEDS ORDERED: NEOSTIGMINE METHYLSULFATE 0.5 MG/ML - 10 ML MDV ONE (14:50)
--- NOTE | 2018-01-19 15:14 | SURG ---
Surgery Manager Life Sciences Note Manager Life Sciences: Kwame Guevara PA-C Date of Service: 01/19/18 Diagnosis: Acute cholecystitis, cholelithiasis Procedure: Laprascopic cholecystectomy I was present for the entirety of the operative procedure. For further detail, please refer to operative report. Visit type - Case Type Case Type: ED Admission
--- NOTE | 2018-01-19 15:16 | OP ---
Operative Note - Note: Operative Date: 01/19/18 Pre-Operative Diagnosis: acute cholecystitis Operation: lap cholecystectomy Findings: acute cholecystiis/cholelithiasis Post-Operative Diagnosis: Same as Pre-op Surgeon: Cruz Zavaleta Operations Processor: Kwame Guevara Anesthesiologist/AUDIO VISUAL EQUIPMENT RENTAL CLERK: Camelia Ramey Anesthesia: General Specimens Removed: gallbladder and contents Estimated Blood Loss (mls): 10
[2018-01-19] MEDS ORDERED: ACETAMINOPHEN 325 MG TABLET (FP) PO PRN ×2 (15:38→15:48)
--- NOTE | 2018-01-19 15:43 | PN ---
Physical Exam: SUBJECTIVE: Patient is a 47 y/o female with a history of uterine Ca and partial oopherectomy who presents with sepsis 2/2 to cholecystitis. Patient has no complaints at this time. No acute events overnight. Patient is getting surgery at 1:30 today. OBJECTIVE: Vital Signs Period Temp Pulse Resp BP Sys/Tripp Pulse Ox Last 24 Hr 97.8 F-98.5 F 56-67 18-19 93-116/53-73 98-98 GENERAL: The patient is awake, alert, and fully oriented, in no acute distress. EYES: PERRL, extraocular movements intact, NECK: Trachea midline, full range of motion, LUNGS: Breath sounds equal, clear to auscultation bilaterally HEART: Regular rate and rhythm, ABDOMEN: Soft, nontender, nondistended, normoactive bowel sounds EXTREMITIES: 2+ pulses, warm, well-perfused, no edema. SKIN: Warm, dry, normal turgor, no rashes or lesions noted Laboratory Results - last 24 hr 01/17/18 01/18/18 01/18/18 09:30 16:00 18:00 Sodium 145 Potassium 3.3 L Chloride 111 H Carbon Dioxide 24 Anion Gap 10 BUN 8 Creatinine 0.5 L Creat Clearance w eGFR > 60 Random Glucose 112 H Calcium 8.2 L Total Bilirubin AST ALT Alkaline Phosphatase Total Protein Albumin Hep A IgM Ab Confirm Negative Hepatitis A Ab Total Positive H Hep Bs Antigen Negative Hep Bs Antibody Non reactive Hep B Core Total Ab Negative Blood Type A POSITIVE Antibody Screen Negative 01/19/18 01/19/18 06:00 07:52 Sodium 143 Potassium 4.1 Chloride 111 H Carbon Dioxide 24 Anion Gap 8 BUN 9 Creatinine 0.5 L Creat Clearance w eGFR > 60 Random Glucose 110 H Calcium 7.9 L Total Bilirubin 0.1 L AST 17 ALT 40 Alkaline Phosphatase 108 D Total Protein 6.8 Albumin 2.8 L Hep A IgM Ab Confirm Hepatitis A Ab Total Hep Bs Antigen Hep Bs Antibody Hep B Core Total Ab Blood Type A POSITIVE Antibody Screen Negative Active Medications Generic Name Dose Route Start Last Admin Trade Name Freq PRN Reason Stop Dose Admin Acetaminophen 650 mg 01/19/18 15:38 Tylenol - PO Q6H PRN Fever Or Pain Heparin Sodium (Porcine) 5,000 unit 01/19/18 22:00 Heparin - SQ TID ANAY Lactated Ringer's 1,000 mls @ 75 mls/hr 01/19/18 15:38 Lactated Ringers Solution IV ASDIR ANAY Sodium Chloride 1,000 mls @ 75 mls/hr 01/19/18 15:38 Normal Saline - IV ASDIR ANAY ASSESSMENT/PLAN: Patient is a 47 y/o female with a history of uterine Ca and partial oopherectomy who presents with sepsis 2/2 to cholecystitis. #sepsis 2/2 to UTI vs gastritis vs cholecystisis - WBC: 5.7 - afebrile - HIDA scan: no filling of the gallbladder, could be secondary to acute cholecystitis or severe chronic cholecysitits - continue Flagyl 500 mg and Levaquin 500 mg 3 day course completed - hepatitis pannel-negative, f/u Lyme disease - pelvic US: no fibroids, no R ovary - abd US: liver mildly fatty - BCX-negative - CT abd/ pelvis : cholelithiasis, sludge present - surgery consult Dr. Zavaleta: cholecystectomy 01/19 - resume diet as per surgery recommendations - monitor to tolerate food, pass gas, and mental status after surgery #DVT ppx - heparin TID #FEN - NS @ 75 Dispo:likely tomorrow Visit type - Emergency Visit Emergency Visit: No - New Patient This patient is new to me today: No - Critical Care Critical Care patient: No
[2018-01-19] MEDS ORDERED: oxyCODONE HCL 5 MG TABLET PO PRN (15:48)
[2018-01-19] MEDS ORDERED: SODIUM CHLORIDE 1,000 ML IV SCH (16:00)
--- NOTE | 2018-01-19 18:04 | PN ---
Teaching Attending Note Name of Resident: Felicia Brand ATTENDING PHYSICIAN STATEMENT I saw and evaluated the patient. I reviewed the resident's note and discussed the case with the resident. I agree with the resident's findings and plan as documented. SUBJECTIVE: seen in PACU, lethargic, no hx obtained OBJECTIVE: NAd , sleeping . CV: RRr Lungs: decreased breath sounds at bases Abd: bandages over laparoscopic wounds . BS present Ext ; no edma or erythema ASSESSMENT AND PLAN: 47 y/o lady with h/o Uterine cancer s/p partial hysterectomy and oophorectomy who presented with Abd pain and was found tohave acute cholecystitis : 1- Acute cholecystitis: imaging reviewed. Now POD 0 s/p CY. - No need for ABx . - stil lethargic. diet when awake - has BS, monitor for flatus - surgical f/u as out pt - tramadol for pain 2- h/o Utrine cancer. 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
[2018-01-19] MEDS: LACTATED RINGERS SOLUTION 1,000 ML IV SCH (18:40)
[2018-01-19] MEDS ORDERED: ONDANSETRON 4 MG/2 ML VIAL IVPUSH ONE (19:00)
[2018-01-19] MEDS: HEPARIN NA (PORCINE) 5,000 UNITS/ML 1ML VIAL SQ SCH (21:12)
[2018-01-19 21:37] LABS: HEMATOCRIT 37.5 % (32.4-45.2); HEMOGLOBIN 12.2 GM/dL (10.7-15.3); MCH 24.7 pg (25.7-33.7); MCHC 32.6 g/dl (32.0-36.0); MEAN CELL VOLUME 75.8 fl (80-96); MEAN PLT VOLUME 7.7 fl (7.5-11.1); PLATELET COUNT 258 K/MM3 (134-434); RBC 4.96 M/mm3 (3.60-5.2); RDW 15.3 % (11.6-15.6); WHITE BLOOD COUNT 9.1 K/mm3 (4.0-10.0)
[2018-01-19 21:59] LABS: ANION GAP 9 (8-16); BLOOD UREA NITROGEN 6 mg/dL (7-18); CALCIUM 8.6 mg/dL (8.5-10.1); CHLORIDE 108 mmol/L (98-107); CO2 25 mmol/L (21-32); CREATININE 0.5 mg/dL (0.55-1.02); GLUCOSE,RANDOM 126 mg/dL (74-106); SODIUM 142 mmol/L (136-145)
[2018-01-20] MEDS: HEPARIN NA (PORCINE) 5,000 UNITS/ML 1ML VIAL SQ SCH (06:06)
[2018-01-20] MEDS: LACTATED RINGERS SOLUTION 1,000 ML IV SCH (06:22)
--- NOTE | 2018-01-20 10:00 | PN ---
Progress Note (short form) - Note Progress Note: Attending Surgeon POD #1 No c/o; tolerated diet VSS AF abdo-soft; flat and non tender; port sites c/d/i; o/w negative. IMP: doing well PLAN: d/c home to office f/u next week. Cruz Zavaleta MD FACS
[2018-01-20 10:26] VITALS: BP 108/59; PULSE 60; TEMP 99
--- NOTE | 2018-01-20 11:11 | DS ---
Physical Exam: SUBJECTIVE: Patient is a 47 y/o female with a history of uterine Ca and partial oopherectomy who presents with sepsis 2/2 to cholecystitis. Patient is POD day 1. patient reports she is hungry today and does not have any pain. she reports she has passed gas. No other complaints OBJECTIVE: Vital Signs Period Temp Pulse Resp BP Sys/Tripp Pulse Ox Last 24 Hr 97.5 F-99 F 59-66 14-24 92-120/47-73 97-100 PHYSICAL EXAM GENERAL: The patient is awake, alert, and fully oriented, in no acute distress. EYES: PERRL, extraocular movements intact, NECK: Trachea midline, full range of motion, LUNGS: Breath sounds equal, clear to auscultation bilaterally HEART: Regular rate and rhythm, ABDOMEN: Soft, nontender, nondistended, normoactive bowel sounds, three incision sites on abdomen EXTREMITIES: 2+ pulses, warm, well-perfused, no edema. SKIN: Warm, dry, normal turgor, no rashes or lesions noted LABS Laboratory Results - last 24 hr 01/16/18 01/17/18 01/19/18 22:40 09:30 21:20 WBC 9.1 RBC 4.96 Hgb 12.2 Hct 37.5 MCV 75.8 L MCH 24.7 L MCHC 32.6 RDW 15.3 Plt Count 258 D MPV 7.7 Sodium Potassium Chloride Carbon Dioxide Anion Gap BUN Creatinine Creat Clearance w eGFR Random Glucose Calcium Lyme IgM Quantitation <0.80 C. trachomatis (LONA) Negative N. gonorrhoeae (LONA) Negative 01/19/18 21:20 WBC RBC Hgb Hct MCV MCH MCHC RDW Plt Count MPV Sodium 142 Potassium 4.0 Chloride 108 H Carbon Dioxide 25 Anion Gap 9 BUN 6 L Creatinine 0.5 L Creat Clearance w eGFR > 60 Random Glucose 126 H Calcium 8.6 Lyme IgM Quantitation C. trachomatis (LONA) N. gonorrhoeae (LONA) HOSPITAL COURSE: Date of Admission:01/17/18 Patient is a 47 y/o female with a history of uterine Ca and partial oopherectomy who presents with fever, chills, abdominal pain, and vomiting. Fever of 102.7 at presentation. Patient put on flagyl and ceftriaxone. CT of abdomen showed cholelithiasis with sludge. Abdominal ultrasound shows a mildly fatty liver. A HIDA scan showed no filling of the gallbladder, contraction secondary to acute cholecystitis or severe cholecystitis. Dr. Zavaleta preformed cholecystectomy 01/19. Patient was able to tolerate food after the procedure and reported she passed gas. She will be sent home on tramadol for pain control as needed. Patient afebrile with no white count, antibiotics discontinued. She will follow up with Dr. Zavaleta within one week. Patient stable and discharged home. Referred to Dr. Sanchez for PCP CXR: no acute pathology Date of Discharge: 01/20/18 Minutes to complete discharge: 35 Discharge Summary Reason For Visit: SEVERE SYSTEMIC INFLAMMATORY RESPONSE SYNDROME Current Active Problems Acute cholecystitis (Acute) Severe systemic inflammatory response syndrome (SIRS) (Acute) Condition: Improved - Instructions Diet, Activity, Other Instructions: Dr. Zavaleta's Discharge Instructions Post Operative Instructions Physical activity Resume your normal everyday activity as tolerated no heavy lifting or exercise until seen by your surgeon. You may walk unlimited amounts of and climb stairs. You may resume driving the car when you feel safe and comfortable behind the wheel. Wound care If you have a bandage, leave it on, and keep dry for 48 - 72 hours. After that time discard the outer bandage. If there are tapes on the skin under the outer bandage, leave them in place. They will peel off in the next 7 to 10 days. Do Not peel them off. You may shower 2 days after surgery. If there are tapes present on the skin, they can get wet. Diet There are no dietary restrictions. Eat healthy, high-fiber foods. Drink 6 to 8 glasses of liquid each day. This will assist in keeping your bowels are regular. Pain management You may take Tylenol or acetaminophen or Ibuprofen (for example, Motrin, Advil etc.) Any pain prescription medication ordered should be taken as prescribed for moderate to severe pain. Call Dr. Zavaleta for any of the following: Severe pain not relieved by medication Fever of 101 or higher Excessive bleeding or drainage on dressing Inability to urinate Call the office at [phone] for a post operative appointment in 7 - 10 days. Please follow up with your primary car physician within one week. Please resume your home medications as prescribed. Please return to the Emergency Department if you have any uncontrolled bleeding , chest pain, shortness of breath, or fevers. Follow with Your lead teller for your uterine cancer Referrals: Bandar Sanchez MD [Staff Physician] - Cruz Zavaleta MD [Staff Physician] - 1 Week Disposition: HOME - Home Medications Comprehensive Discharge Medication List: Ambulatory Orders Tramadol HCl 50 mg PO Q6H PRN #30 tablet MDD 4 01/19/18 This patient is new to me today: No Emergency Visit: No Critical Care patient: No - Discharge Referral Referred to [facility] No
--- NOTE | 2018-01-20 14:24 | PN ---
Teaching Attending Note Name of Resident: Felicia Brand ATTENDING PHYSICIAN STATEMENT I saw and evaluated the patient. I reviewed the resident's note and discussed the case with the resident. I agree with the resident's findings and plan as documented. SUBJECTIVE: Abd pain is minimal. no fever or chills. passed gas but no BM . No N/V OBJECTIVE: NAd, awake and alert . very pleasant CV: RRR Lungs: decreased breath sounds at bases Abd: bandages over laparoscopic wounds . BS present Ext ; no edmea or erythema ASSESSMENT AND PLAN: 47 y/o lady with h/o Uterine cancer s/p partial hysterectomy and oophorectomy who presented with Abd pain and was found tohave acute cholecystitis : 1- Acute cholecystitis s/p CCy yesterday . -tramadol for pain - f/u with sx as out pt 2- h/o Utrine cancer. f/u with her Medical Tech Dc home
--- NOTE | 2018-01-21 12:47 | OP ---
DATE OF OPERATION: 01/19/2018 PREOPERATIVE DIAGNOSIS: Acute cholecystitis and cholelithiasis. POSTOPERATIVE DIAGNOSIS: Acute cholecystitis and cholelithiasis. PROCEDURE: Laparoscopic cholecystectomy. SURGEON: Cruz Zavaleta MD PHARMACISTS: Kwame Guevara PA-C ANESTHESIA: General. OPERATIVE FINDINGS: There was acute cholecystitis and cholelithiasis. The rest of the findings were unremarkable. DESCRIPTION OF PROCEDURE: The patient was placed on the operating room table in supine position. After the induction of general anesthesia, the patient's abdomen was prepped with ChloraPrep and draped in sterile fashion. Time-out was taken and then pneumoperitoneum established above the umbilicus using a Veress needle. Once 15 mm of intra-abdominal pressure was obtained, a 5-mm port was placed at the umbilicus. Additional lateral 5-mm ports and a subxiphoid 12-mm port were placed and laparoscopy carried out, and the previously noted findings were observed. The gallbladder was placed on cephalad and lateral traction, and dissection was begun at the neck of the gallbladder where the peritoneum was opened medially and laterally using blunt and sharp dissection and electrocautery. Dissection continued in the triangle of Calot where the cystic duct was identified coursing from the neck of the gallbladder distally to the common bile duct. It was dissected proximally and distally for length. Similarly, the artery was similarly identified and dissected. A critical view of safety was taken, and then the cystic duct divided proximally and distally using Endo Shantell after it was clipped twice proximally and distally with large hemoclips. The artery was similarly clipped and divided as well as a posterior branch. Hemostasis was checked for and noted to be good and then the gallbladder was removed from the liver bed in a retrograde fashion using electrocautery. Prior to removal from the edge of the liver, hemostasis was again verified and then the gallbladder removed from the edge of the liver, placed in an EndoCatch, and brought out through the subxiphoid port. Pneumoperitoneum was reestablished, hemostasis verified again, and then the 5-mm lateral and subxiphoid ports were removed under laparoscopic vision without evidence of bleeding from the port sites. The umbilical port was removed and the pneumoperitoneum evacuated. All port sites were infiltrated with 0.5% Marcaine and the skin edges closed with 4-0 Biosyn in a subcuticular and continuous fashion. Steri-Strips and Band-Aid dressings were placed and the procedure terminated at this point and the patient aroused from general anesthesia and transferred to the post anesthesia care unit in stable condition awake and alert. ESTIMATED BLOOD LOSS: 10 mL. REPLACEMENTS: Crystalloid. DRAINS: None. SPECIMENS: Gallbladder and contents to Pathology. I, Cruz Zavaleta, was physically present in the operating room from the time the patient was placed on the operating room table until she was transferred to the post-anesthesia care unit in my accompaniment. MD AYE Carrillo/[id number] MTDD
--- NOTE | 2018-01-21 12:53 | PATH ---
Surgical Pathology Report Patient Name: VANDA GARCIA [facility]. Rec. #: [id number] /Age/Gender: 1970 (Age: 47) / F Account: [id number] Location: [address] [place] [address]/[facility] Taken: 01/19/2018 Received: 01/20/2018 Reported: 01/21/2018 Physicians: MD Annette Newberry M.D. Specimen(s) Received GALLBLADDER Clinical History Acute cholecystitis Final Diagnosis GALLBLADDER, LAPAROSCOPIC CHOLECYSTECTOMY: CHRONIC CHOLECYSTITIS WITH CHOLELITHIASIS. Electronically Signed Felicia An M.D. Gross Description Received in formalin, labeled "gallbladder," is a 7.0 x 2.2 x 2.0 cm. gallbladder with a 0.2 cm. in length portion of cystic duct attached. The outer surface is schmid rosa and varies from smooth to shaggy. The lumen contains green, tenacious bile as well as abundant yellow, irregular to fragmented choleliths ranging from 0.1-1.2 cm in greatest dimension. The mucosa is green and focally eroded. The wall of the gallbladder measures 0.1 cm. in thickness. Risk Control Consultant sections are submitted in one cassette. /01/20/201801/20/2018
== END 2018-01-20 11:23 | disposition home or self-care (01) | DRG 263 ==
LOC: EDBD 16:16 → JERFT 16:16 → JERBED 01-17 02:28 → OBSVTOIN 01-17 04:14 → J5S 01-17 17:31
PROVIDERS: ADMIT Internal Medicine; ATTEND Internal Medicine
PROC: 0FT44ZZ Resection of Gallbladder, Percutaneous Endoscopic Approach (ICD-10-PCS; principal; 2018-01-19 13:30)
DX: K80.00 Calculus of gallbladder with acute cholecystitis without obstruction (principal); R65.10 Systemic inflammatory response syndrome (SIRS) of non-infectious origin without acute organ dysfunction; K76.0 Fatty (change of) liver, not elsewhere classified; Z85.42 Personal history of malignant neoplasm of other parts of uterus; Z91.14 Patient's other noncompliance with medication regimen; E66.9 Obesity, unspecified; Z68.32 Body mass index [BMI] 32.0-32.9, adult; R53.83 Other fatigue
CPT/HCPCS: 36415; 71045-TC-FY; 74177-TC; 76705-TC; 76830-TC; 78226-TC; 80048; 80053; 81003; 82803; 83605; 83690; 84484; 84703; 85025; 85027; 85610; 85730; 86704; 86706; 86708; 86850; 86900; 86901; 87040; 87086; 87324; 87340; 87449; 87491; 87522; 87591; 88304-TC; 93005; 93010; 94760; 99285-25; A9537; G0378; J1644; J7030

== ENCOUNTER 2019-01-21 17:46 | Emergency (ER) | payer SELFPAY, OTHER | END 2019-01-21 22:39 | disposition home or self-care (01) | LOC: JER 17:46 ==

== ENCOUNTER 2019-02-26 21:09 | Emergency (ER) | payer SELFPAY ==
[2019-02-26 21:18] VITALS: TEMP 97.8; BMI 35.5
--- NOTE | 2019-02-26 21:29 | PDOC ---
History of Present Illness - General Chief Complaint: Chest Pain Stated Complaint: CHEST PAIN, SHORTNESS OF BREATH Time Seen by Provider: 02/26/19 21:29 Past History - Past Medical History Allergies/Adverse Reactions: Allergies Allergy/AdvReac Type Severity Reaction Status Date / Time No Known Allergies Allergy Verified 02/26/19 21:14 Home Medications: Ambulatory Orders Tramadol HCl 50 mg PO Q6H PRN #30 tablet MDD 4 01/19/18 Sulfamethoxazole/Trimethoprim [Bactrim Ds Tablet] 1 each PO BID #28 tablet 01/21 Anemia: No Asthma: No Cancer: Yes (Uterine CA) Cardiac Disorders: No CVA: No COPD: No Dementia: No Diabetes: No GI Disorders: Yes Disorders: No HTN: No Hypercholesterolemia: No Liver Disease: No Seizures: No Thyroid Disease: No - Surgical History Abdominal Surgery: No Appendectomy: No Cardiac Surgery: No Lung Surgery: No Neurologic Surgery: No - Immunization History Immunization Up to Date: No - Suicide/Smoking/Psychosocial Hx Smoking History: Never smoked Have you smoked in the past 12 months: No Hx Alcohol Use: No Drug/Substance Use Hx: No Substance Use Type: None Hx Substance Use Treatment: No Review of Systems - Review of Systems Able to Perform ROS?: Yes Comments:: 02/26/19 22:48 ROS: GENERAL/CONSTITUTIONAL: No fever or chills. No weakness. HEAD, EYES, EARS, NOSE AND THROAT: No change in vision. No ear pain or discharge. No sore throat. CARDIOVASCULAR: Chest pain, shortness of breath RESPIRATORY: No cough, wheezing, or hemoptysis. GASTROINTESTINAL: No nausea, vomiting, diarrhea or constipation. GENITOURINARY: No dysuria, frequency, or change in urination. MUSCULOSKELETAL: Neck, shoulder pain. No other joint or muscle swelling or pain. SKIN: No rash NEUROLOGIC: No headache, vertigo, loss of consciousness, or change in strength/ sensation. ENDOCRINE: No increased thirst. No abnormal weight change HEMATOLOGIC/LYMPHATIC: No anemia, easy bleeding, or history of blood clots. ALLERGIC/IMMUNOLOGIC: No hives or skin allergy. *Physical Exam - Vital Signs Last Vital Signs Temp Pulse Resp BP Pulse Ox 97.8 F 65 18 114/59 L 100 02/26/19 21:14 02/26/19 21:14 02/26/19 21:14 02/26/19 21:14 02/26/19 21:14 - Physical Exam Comments: 02/26/19 22:48 PE: GENERAL: Awake, alert, and fully oriented, in no acute distress HEAD: No signs of trauma, normocephalic, atraumatic EYES: PERRLA, EOMI, sclera anicteric, conjunctiva clear ENT: Auricles normal inspection, hearing grossly normal, nares patent, oropharynx clear without exudates. Moist mucosa NECK: Normal ROM, supple, no lymphadenopathy, JVD, or masses LUNGS: No distress, speaks full sentences, clear to auscultation bilaterally HEART: Regular rate and rhythm, normal S1 and S2, no murmurs, rubs or gallops, peripheral pulses normal and equal bilaterally. ABDOMEN: Soft, nontender, normoactive bowel sounds. No guarding, no rebound. No masses EXTREMITIES : Normal inspection, Normal range of motion, no edema. No clubbing or cyanosis NEUROLOGICAL: Cranial nerves II through XII grossly intact. Normal speech, normal gait, no focal sensorimotor deficits SKIN: Warm, Dry, normal turgor, no rashes or lesions noted Heart Score/ECG Review - History History: Moderately suspicious - Electrocardiogram EKG: Normal - Age Age: </= 45 - Risk Factors Risk Factors Heart Score: Yes Hx Obesity Based on the list above the patient has:: 1-2 risk factors - Troponin Troponin: </= normal limit - Score Heart Score - Total: 2 ED Treatment Course - LABORATORY CBC & Chemistry Diagram: 02/26/19 23:00 02/26/19 23:00 Medical Decision Making - Medical Decision Making 02/26/19 22:49 48 y/o F with no PMH p/w one day of chest pain with radiation to neck and shortness of breath with deep inspiration after one week of R shoulder pain. Differential for her includes ACS given SOB and chest pain. Plan: CBC CMP Cardiac Profile. repeat troponin in 3 hours EKG CXR Ofirmev 1g IV Dispo: Pending troponin, ekg 02/27/19 01:36 EKG nsr, no acute changes Troponin - negative HEART: 2 Plan for repeat troponin, likely discharge home. *DC/Admit/Observation/Transfer Diagnosis at time of Disposition: Angina pectoris - Discharge Dispostion Condition at time of disposition: Stable Decision to Admit order: No - Referrals - Patient Instructions Printed Discharge Instructions: DI for Chest Pain Additional Instructions: Usted fue evalada en la scooter de urgencias por dolor de pecho. Nosotros evaluamos a fidencio sintomas, evaluamos niveles de natalia y un electrocardiogramo de munguia campbell. Todo resulto en niveles normales. Tambien repetimos munguia nivel de troponin (tesfaye proteina cardiaco), y el ayan nivel tambien resulto normal. Por favor ve a munguia docotor de cabezera lo mas pronto posible, en la semana que viene. Por favor regresa a la scooter de urgencies si empiezas a tener dolor rickie , o empiezas a tener confusion, mareos, mucho dificultad en respirar, o tienes cambios de munguia vision. Print Language: CROATIAN - Post Discharge Activity
[2019-02-26] MEDS ORDERED: ASPIRIN 81 MG CHEWABLE TABLETS PO ONE (22:17)
[2019-02-26] MEDS ORDERED: ASPIRIN 81 MG CHEWABLE TABLETS ONE (22:42)
--- NOTE | 2019-02-26 22:44 | PDOC ---
Attending Attestation - Resident Resident Name: Ruben Silva - ED Attending Attestation I have performed the following: I have examined & evaluated the patient, The case was reviewed & discussed with the resident, I agree w/resident's findings & plan, Exceptions are as noted - HPI HPI: 02/26/19 22:42 48 yo female p/w one week of rt shoulder pain and now has a squeezing pain in her chest, 7/10 in intensity associated symptoms +dizziness,pain w deep breaths. No fever,chills,nausea, vomiting,cough - Physicial Exam PE: 02/26/19 22:44 wnwd 48 yo female in no acute distress head ncat eyes eomi neck supple, no jvd lungs cta b/l cvs [id number] abd no rebound,no guarding back there is a large lipoma on pt's left back, no erythema ,nonternder,no flutuance no flank pain skin warm and dry neuro axox3,ambulatory psych appropriate 02/27/19 02:03 - Medical Decision Making 02/26/19 22:46 pt had 1 week rt shoulder pain , with chest and rt side neck pain that she describes as squeezing denies any recent trauma plan ekg,cxr,cbc,trop,comp,sprg 02/27/19 02:02 2 negative troponins 02/27/19 02:05 ekg is ssinus bradycardia @ 58 bpm imp atypical chest pain pt d/c home
[2019-02-26] MEDS ORDERED: ACETAMINOPHEN 1000 MG/100 ML VIAL (NON FORMULARY) IVPB ONE (22:55)
[2019-02-26] MEDS ORDERED: ACETAMINOPHEN INJECTION 100 ML IVPB ONE (23:34)
[2019-02-26 23:44] LABS: BASO % 0.7 % (0-2.0); EOS % 1.8 % (0-4.5); HEMOGLOBIN 12.9 GM/dL (10.7-15.3); MCHC 32.4 g/dl (32.0-36.0); MEAN CELL VOLUME 77.3 fl (80-96); MONO % 5.8 % (3.8-10.2); NEUT % 59.7 % (42.8-82.8); PLATELET COUNT 272 K/MM3 (134-434); RBC 5.18 M/mm3 (3.60-5.2); RDW 15.3 % (11.6-15.6); WHITE BLOOD COUNT 8.3 K/mm3 (4.0-10.0)
[2019-02-27 00:20] LABS: ALBUMIN 3.7 g/dl (3.4-5.0); BILIRUBIN,TOTAL 0.3 mg/dL (0.2-1); BLOOD UREA NITROGEN 13.8 mg/dL (7-18); CALCIUM 9.1 mg/dL (8.5-10.1); CREATININE 0.5 mg/dL (0.55-1.3); MAGNESIUM 2.3 mg/dL (1.8-2.4); POTASSIUM 4.2 mmol/L (3.5-5.1); TOT PROT 8.4 g/dl (6.4-8.2)
[2019-02-27 00:23] LABS: N-TERMINAL BNP 31.8 pg/ml (5-125)
[2019-02-27 05:14] VITALS: BP 126/64; PULSE 68
--- NOTE | 2019-02-27 09:17 | EKG ---
Test Reason : Blood Pressure : / mmHG Vent. Rate : 058 BPM Atrial Rate : 058 BPM P-R Int : 146 ms QRS Dur : 072 ms QT Int : 448 ms P-R-T Axes : 011 047 034 degrees QTc Int : 439 ms SINUS BRADYCARDIA OTHERWISE NORMAL ECG WHEN COMPARED WITH ECG OF 16-JAN-2018 22:00, NO SIGNIFICANT CHANGE WAS FOUND Confirmed by MARISSA VENTURA MD ([id number]) on 02/27/2019 9:17:19 AM Referred By: Confirmed By:MARISSA VENTURA MD
== END 2019-02-27 02:20 | disposition home or self-care (01) ==
LOC: JER 21:09
PROC: 3E033NZ Introduction of Analgesics, Hypnotics, Sedatives into Peripheral Vein, Percutaneous Approach (ICD-10-PCS; principal; 2019-02-26)
DX: I20.9 Angina pectoris, unspecified (principal); R07.9 Chest pain, unspecified
CPT/HCPCS: 36415; 71045-TC-FY; 80053; 82550; 83735; 83880; 84484; 84703; 85025; 93005; 93010; 99283-25; J0131

== ENCOUNTER 2024-02-25 21:28 | Inpatient (IN) | payer OTHER ==
[2024-02-25 22:28] LABS: EPI CELLS 12 /uL (0-25.1); HYALINE CASTS 1 /uL (0-3.1); URINE APPEARANCE TURBID; URINE BACTERIA >9,000 /uL (0-1359); URINE BILIRUBIN NEGATIVE (NEGATIVE); URINE COLOR ORANGE; URINE GLUCOSE (UA) NEGATIVE (NEGATIVE); URINE KETONE NEGATIVE (NEGATIVE); URINE LEUK ESTERASE 3+ (NEGATIVE); URINE NITRITE POSITIVE (NEGATIVE); URINE PROTEIN 3+ (NEGATIVE); URINE WBC 8157 /uL (0-25.8)
[2024-02-25 22:35] LABS: URINE RBC 4460 /uL (0-23.9)
[2024-02-25 23:26] LABS: BASO % 0.3 % (0-2.0); EOS % 0.2 % (0-4.5); HEMATOCRIT 28.6 % (32.4-45.2); HEMOGLOBIN 9.5 GM/dL (10.7-15.3); LYMPH % 6.5 % (8-40); MCH 27.8 pg (25.7-33.7); MCHC 33.2 g/dl (32.0-36.0); MEAN CELL VOLUME 83.8 fl (80-96); MEAN PLT VOLUME 7.8 fl (7.5-11.1); PLATELET COUNT 233 10^3/uL (134-434); RBC 3.41 M/mm3 (3.60-5.2); RDW 14.1 % (11.6-15.6); WHITE BLOOD COUNT 15.8 K/mm3 (4.0-10.0)
[2024-02-25] MEDS ORDERED: KETOROLAC TROMETHAMINE 15 MG/ML VIAL ONE (23:29)
[2024-02-25] MEDS ORDERED: CEFTRIAXONE 1 GM/50 ML BAG ONE (23:29)
[2024-02-25] MEDS ORDERED: ACETAMINOPHEN INJECTION 100 ML ONE (23:29)
[2024-02-25 23:32] LABS: INR 1.33 (0.83-1.09); PROTHROMBIN TIME (PATIENT) 14.9 SEC (9.7-13.0)
[2024-02-25 23:35] LABS: ACTIVATED PTT 32.8 SECONDS (25.2-36.5)
[2024-02-25] MEDS: ACETAMINOPHEN 1000 MG/100 ML BAG IVPB ONE (23:38)
[2024-02-25] MEDS: SODIUM CHLORIDE 500 ML IV STA (23:38)
[2024-02-25] MEDS: KETOROLAC TROMETHAMINE 15 MG/ML VIAL IVPUSH ONE (23:39)
[2024-02-25] MEDS: CEFTRIAXONE 1 GM in DEXTROSE 5%-WATER - 100 ML IVPB ONE (23:39)
[2024-02-25 23:52] LABS: POTASSIUM 3.2 mmol/L (3.5-5.1)
[2024-02-25 23:54] LABS: ALBUMIN 2.8 g/dl (3.4-5.0); BLOOD UREA NITROGEN 20.2 mg/dL (7-18); CALCIUM 8.5 mg/dL (8.5-10.1)
[2024-02-25 23:58] LABS: CREATININE 1.1 mg/dL (0.55-1.3)
[2024-02-25 23:59] LABS: BILIRUBIN,TOTAL 0.5 mg/dL (0.2-1); TOT PROT 8.1 g/dl (6.4-8.2)
[2024-02-26] MEDS ORDERED: HYDROCORTISONE SOD SUCCINATE 100 MG/2 ML VIAL ONE (01:13)
[2024-02-26] MEDS: SODIUM CHLORIDE 1,500 ML IV STA (01:22)
[2024-02-26] MEDS: HYDROCORTISONE SOD SUCCINATE 100 MG/2 ML VIAL IVPB ONE (01:22)
[2024-02-26] MEDS: NOREPINEPHRINE BITARTRATE 4,000 MCG in DEXTROSE 5%-WATER - 496 ML IV SCH (03:12)
[2024-02-26] MEDS ORDERED: POTASSIUM CHLORIDE ORAL LIQUID 20 MEQ/15 ML ONE (03:15)
[2024-02-26] MEDS: POTASSIUM CHLORIDE ORAL LIQUID 20 MEQ/15 ML PO ONE (03:20)
[2024-02-26] MEDS: SODIUM CHLORIDE 1,000 ML IV STA (04:00)
[2024-02-26 04:08] VITALS: BMI 33.5
[2024-02-26] MEDS ORDERED: ONDANSETRON 4 MG/2 ML VIAL IVPUSH PRN (04:36)
[2024-02-26] MEDS: SODIUM CHLORIDE 1,000 ML IV SCH (05:00)
[2024-02-26] MEDS: CEFTRIAXONE 1 GM in DEXTROSE 5%-WATER - 50 ML IVPB SCH (09:47)
[2024-02-26] MEDS: PANTOPRAZOLE SODIUM 40 MG VIAL IVPUSH SCH (09:47)
[2024-02-26] MEDS: HEPARIN NA (PORCINE) 5,000 UNITS/ML 1ML VIAL SQ SCH (10:06)
[2024-02-26] MEDS: SODIUM CHLORIDE 1,000 ML IV ONE (11:09)
[2024-02-26] MEDS ORDERED: PIPERACILLIN/TAZOB 3.375 GM 3.375 GM in DEXTROSE 5%-WATER - 50 ML IVPB SCH (11:45)
[2024-02-26] MEDS: PIPERACILLIN/TAZOB 3.375 GM 3.375 GM in DEXTROSE 5%-WATER - 50 ML IVPB SCH (11:55)
[2024-02-27 07:47] LABS: POTASSIUM 3.1 mmol/L (3.5-5.1)
[2024-02-27 07:51] LABS: BLOOD UREA NITROGEN 14.5 mg/dL (7-18); CALCIUM 7.7 mg/dL (8.5-10.1); MAGNESIUM 1.8 mg/dL (1.8-2.4)
[2024-02-27 07:53] LABS: CREATININE 0.9 mg/dL (0.55-1.3)
[2024-02-27 07:54] LABS: PHOSPHOROUS 2.6 mg/dL (2.5-4.9)
[2024-02-27 08:14] LABS: BASO % 0.9 % (0-2.0); EOS % 0.9 % (0-4.5); HEMOGLOBIN 8.4 GM/dL (10.7-15.3); LYMPH % 18.9 % (8-40); MCH 27.8 pg (25.7-33.7); MCHC 32.4 g/dl (32.0-36.0); MEAN CELL VOLUME 85.7 fl (80-96); MEAN PLT VOLUME 7.6 fl (7.5-11.1); MONO % 6.2 % (3.8-10.2); NEUT % 73.1 % (42.8-82.8); PLATELET COUNT 199 10^3/uL (134-434); RBC 3.03 M/mm3 (3.60-5.2); RDW 14.5 % (11.6-15.6); WHITE BLOOD COUNT 7.6 K/mm3 (4.0-10.0)
[2024-02-27] MEDS: LACTATED RINGERS SOLUTION 1,000 ML/1,000 ML INFUS.BAG IV SCH ×2 (12:01→21:14)
[2024-02-27] MEDS: KCL 10 MEQ IVPB 10 MEQ/100 ML INFUS.BAG IVPB SCH (12:02)
[2024-02-27] MEDS ORDERED: ONDANSETRON 4 MG/2 ML VIAL IVPUSH PRN (18:42)
[2024-02-27] MEDS: HEPARIN NA (PORCINE) 5,000 UNITS/ML 1ML VIAL SQ SCH (21:15)
[2024-02-27] MEDS: PIPERACILLIN/TAZOB 3.375 GM 3.375 GM in DEXTROSE 5%-WATER - 50 ML IVPB SCH (21:15)
[2024-02-28] MEDS: PANTOPRAZOLE SODIUM 40 MG VIAL IVPUSH SCH (09:42)
[2024-02-28] MEDS: MEROPENEM 1 GM in DEXTROSE 5%-WATER 100 ML IVPB SCH (18:24)
[2024-02-29 13:55] LABS: BASO % 0.4 % (0-2.0); EOS % 4.5 % (0-4.5); HEMATOCRIT 30.9 % (32.4-45.2); HEMOGLOBIN 10.2 GM/dL (10.7-15.3); LYMPH % 18.2 % (8-40); MCH 27.8 pg (25.7-33.7); MCHC 32.9 g/dl (32.0-36.0); MEAN CELL VOLUME 84.4 fl (80-96); MEAN PLT VOLUME 6.9 fl (7.5-11.1); MONO % 7.1 % (3.8-10.2); NEUT % 69.8 % (42.8-82.8); PLATELET COUNT 296 10^3/uL (134-434); RBC 3.66 M/mm3 (3.60-5.2); RDW 14.5 % (11.6-15.6); WHITE BLOOD COUNT 5.8 K/mm3 (4.0-10.0)
[2024-02-29 14:00] LABS: INR 1.22 (0.83-1.09); PROTHROMBIN TIME (PATIENT) 13.7 SEC (9.7-13.0)
[2024-02-29 14:18] LABS: POTASSIUM 3.6 mmol/L (3.5-5.1)
[2024-02-29 14:20] LABS: CALCIUM 8.2 mg/dL (8.5-10.1)
[2024-02-29 14:21] LABS: ALBUMIN 2.3 g/dl (3.4-5.0); BLOOD UREA NITROGEN 10.6 mg/dL (7-18)
[2024-02-29 14:24] LABS: CREATININE 0.7 mg/dL (0.55-1.3); PHOSPHOROUS 3.1 mg/dL (2.5-4.9)
[2024-02-29 14:25] LABS: BILIRUBIN,TOTAL 0.2 mg/dL (0.2-1)
[2024-02-29 14:26] LABS: TOT PROT 7.2 g/dl (6.4-8.2)
[2024-03-01] MEDS: ERTAPENEM SODIUM 1 GM in SODIUM CHLORIDE 50 ML IVPB SCH (09:33)
[2024-03-01 10:41] LABS: BASO % 0.2 % (0-2.0); EOS % 6.6 % (0-4.5); HEMATOCRIT 34.2 % (32.4-45.2); HEMOGLOBIN 11.2 GM/dL (10.7-15.3); LYMPH % 25.2 % (8-40); MCH 27.6 pg (25.7-33.7); MCHC 32.8 g/dl (32.0-36.0); PLATELET COUNT 349 10^3/uL (134-434); RBC 4.06 M/mm3 (3.60-5.2); RDW 14.6 % (11.6-15.6); WHITE BLOOD COUNT 5.9 K/mm3 (4.0-10.0)
[2024-03-01 10:59] LABS: POTASSIUM 3.6 mmol/L (3.5-5.1)
[2024-03-01 11:07] LABS: ALBUMIN 2.4 g/dl (3.4-5.0); MAGNESIUM 2.1 mg/dL (1.8-2.4)
[2024-03-01 11:08] LABS: CREATININE 0.7 mg/dL (0.55-1.3)
[2024-03-01 11:09] LABS: BILIRUBIN,TOTAL 0.5 mg/dL (0.2-1); TOT PROT 7.4 g/dl (6.4-8.2)
[2024-03-01 11:10] LABS: PHOSPHOROUS 2.9 mg/dL (2.5-4.9)
[2024-03-02 08:56] LABS: BASO % 0.8 % (0-2.0); EOS % 6.7 % (0-4.5); HEMATOCRIT 30.3 % (32.4-45.2); HEMOGLOBIN 9.9 GM/dL (10.7-15.3); LYMPH % 28.2 % (8-40); MCH 27.6 pg (25.7-33.7); MCHC 32.7 g/dl (32.0-36.0); MEAN CELL VOLUME 84.6 fl (80-96); MEAN PLT VOLUME 6.6 fl (7.5-11.1); MONO % 7.2 % (3.8-10.2); NEUT % 57.1 % (42.8-82.8); PLATELET COUNT 330 10^3/uL (134-434); RBC 3.58 M/mm3 (3.60-5.2); RDW 14.8 % (11.6-15.6); WHITE BLOOD COUNT 6.5 K/mm3 (4.0-10.0)
[2024-03-02 09:18] LABS: POTASSIUM 3.8 mmol/L (3.5-5.1)
[2024-03-02 09:27] LABS: BLOOD UREA NITROGEN 10.5 mg/dL (7-18); CALCIUM 8.7 mg/dL (8.5-10.1); MAGNESIUM 2.1 mg/dL (1.8-2.4)
[2024-03-02 09:28] LABS: ALBUMIN 2.3 g/dl (3.4-5.0)
[2024-03-02 09:30] LABS: CREATININE 0.6 mg/dL (0.55-1.3); PHOSPHOROUS 2.9 mg/dL (2.5-4.9)
[2024-03-02 09:31] LABS: BILIRUBIN,TOTAL 0.2 mg/dL (0.2-1)
[2024-03-02 16:38] VITALS: RESP 18
[2024-03-02] MEDS: ACETAMINOPHEN 325 MG TABLET (FP) PO ONE (18:40)
[2024-03-02 19:05] VITALS: BP 108/63; PULSE 76; TEMP 98.4
== END 2024-03-02 19:40 | disposition home or self-care (01) | DRG 721 ==
LOC: JER 21:28 → JICU 02-26 01:46 → JER 02-26 01:55 → J5S 02-27 18:41
PROVIDERS: ADMIT Internal Medicine Pulmonary Disease; ATTEND Internal Medicine
PROC: 02HV33Z Insertion of Infusion Device into Superior Vena Cava, Percutaneous Approach (ICD-10-PCS; principal; 2024-03-02)
PROC: B518ZZA Fluoroscopy of Superior Vena Cava, Guidance (ICD-10-PCS; 2024-03-02)
DX: T81.44XA Sepsis following a procedure, initial encounter (principal); T83.592A Infection and inflammatory reaction due to indwelling ureteral stent, initial encounter; N13.6 Pyonephrosis; I95.9 Hypotension, unspecified; N12 Tubulo-interstitial nephritis, not specified as acute or chronic; N20.1 Calculus of ureter; Y83.8 Other surgical procedures as the cause of abnormal reaction of the patient, or of later complication, without mention of misadventure at the time of the procedure; R11.2 Nausea with vomiting, unspecified; R30.0 Dysuria; B96.20 Unspecified Escherichia coli [E. coli] as the cause of diseases classified elsewhere; Z85.42 Personal history of malignant neoplasm of other parts of uterus; Z93.3 Colostomy status; E86.0 Dehydration
CPT/HCPCS: 0241U-QW; 36415; 36569; 71046-TC-FY; 74176-TC; 80048; 80053; 81003; 83605; 83690; 83735; 84100; 84484; 85025; 85610; 85730; 86850; 86900; 86901; 87040; 87086; 87186; 93005; 93010; 97116-GP; 97162-GP; 99285-25; J0131; J1644

== ENCOUNTER 2024-03-03 13:13 | Day surgery (SDC) | payer OTHER ==
[2024-03-03] MEDS: ERTAPENEM SODIUM 1 GM in SODIUM CHLORIDE 50 ML IVPB ONE (13:38)
[2024-03-03 14:01] VITALS: BP 116/63; PULSE 76; RESP 18; TEMP 98.4
== END 2024-03-03 14:30 | disposition home or self-care (01) ==
LOC: FINFUSION 13:13 → FM/S 13:14 → FINFUSION 14:30
PROVIDERS: ATTEND Internal Medicine Infectious Disease
DX: N39.0 Urinary tract infection, site not specified (principal); Z16.12 Extended spectrum beta lactamase (ESBL) resistance
CPT/HCPCS: 96365

== ENCOUNTER 2024-03-04 13:02 | Day surgery (SDC) | payer OTHER ==
[2024-03-04] MEDS: ERTAPENEM SODIUM 1 GM in SODIUM CHLORIDE 50 ML IVPB SCH (13:33)
[2024-03-04] MEDS ORDERED: ERTAPENEM SODIUM 1 GM in SODIUM CHLORIDE 50 ML IVPB SCH (13:45)
[2024-03-04 14:17] VITALS: BP 107/74; PULSE 78; RESP 14; TEMP 98.2
== END 2024-03-04 14:54 | disposition home or self-care (01) ==
LOC: FM/S 13:02 → FINFUSION 13:02
PROVIDERS: ATTEND Internal Medicine Infectious Disease
DX: N39.0 Urinary tract infection, site not specified (principal); Z16.12 Extended spectrum beta lactamase (ESBL) resistance
CPT/HCPCS: 96365

== ENCOUNTER 2024-03-05 13:05 | Day surgery (SDC) | payer OTHER ==
[2024-03-05] MEDS: ERTAPENEM SODIUM 1 GM in SODIUM CHLORIDE 50 ML IVPB ONE (13:37)
[2024-03-05 14:27] VITALS: BP 115/84; PULSE 78; RESP 14; TEMP 97.5
== END 2024-03-05 14:46 | disposition home or self-care (01) ==
LOC: FINFUSION 13:05 → FM/S 13:05 → FINFUSION 14:46
PROVIDERS: ATTEND Internal Medicine Infectious Disease
DX: N39.0 Urinary tract infection, site not specified (principal); Z16.12 Extended spectrum beta lactamase (ESBL) resistance
CPT/HCPCS: 96365

== ENCOUNTER 2024-03-06 12:32 | Day surgery (SDC) | payer OTHER ==
[2024-03-06 12:46] VITALS: BP 132/67; RESP 18; TEMP 97.8
[2024-03-06] MEDS: ERTAPENEM SODIUM 1 GM in SODIUM CHLORIDE 50 ML IVPB ONE (12:51)
[2024-03-06 13:21] VITALS: PULSE 72
== END 2024-03-06 13:30 | disposition home or self-care (01) ==
LOC: FINFUSION 12:32 → FM/S 12:34 → FINFUSION 13:30
PROVIDERS: ATTEND Internal Medicine Infectious Disease
DX: N39.0 Urinary tract infection, site not specified (principal); B96.20 Unspecified Escherichia coli [E. coli] as the cause of diseases classified elsewhere; Z16.12 Extended spectrum beta lactamase (ESBL) resistance
CPT/HCPCS: 96365

== ENCOUNTER 2024-03-07 13:04 | Day surgery (SDC) | payer OTHER ==
[2024-03-07] MEDS: ERTAPENEM SODIUM 1 GM in SODIUM CHLORIDE 50 ML IVPB ONE (13:31)
[2024-03-07 14:20] VITALS: BP 132/66; PULSE 75; RESP 18; TEMP 98.1
== END 2024-03-07 15:40 | disposition home or self-care (01) ==
LOC: FINFUSION 13:04 → FM/S 13:05 → FINFUSION 15:40
PROVIDERS: ATTEND Internal Medicine Infectious Disease
DX: N39.0 Urinary tract infection, site not specified (principal); B96.20 Unspecified Escherichia coli [E. coli] as the cause of diseases classified elsewhere; Z16.12 Extended spectrum beta lactamase (ESBL) resistance
CPT/HCPCS: 96365

== ENCOUNTER 2024-03-08 12:51 | Day surgery (SDC) | payer OTHER ==
[2024-03-08] MEDS: ERTAPENEM SODIUM 1 GM in SODIUM CHLORIDE 50 ML IVPB ONE (14:00)
[2024-03-08 15:22] VITALS: BP 131/70; PULSE 74; RESP 18; TEMP 98.2
== END 2024-03-08 14:56 | disposition home or self-care (01) ==
LOC: FINFUSION 12:51 → FM/S 12:53 → FINFUSION 14:56
PROVIDERS: ATTEND Internal Medicine Infectious Disease
DX: N39.0 Urinary tract infection, site not specified (principal); B96.20 Unspecified Escherichia coli [E. coli] as the cause of diseases classified elsewhere; Z16.12 Extended spectrum beta lactamase (ESBL) resistance
CPT/HCPCS: 96365

== ENCOUNTER 2024-03-09 12:56 | Day surgery (SDC) | payer OTHER ==
[2024-03-09] MEDS: ERTAPENEM SODIUM 1 GM in SODIUM CHLORIDE 50 ML IVPB ONE (13:45)
[2024-03-09 16:59] VITALS: RESP 16
[2024-03-09 17:13] VITALS: BP 97/65; PULSE 82; TEMP 98.2
== END 2024-03-09 15:35 | disposition home or self-care (01) ==
LOC: FINFUSION 12:56 → FM/S 12:57 → FINFUSION 15:35
PROVIDERS: ATTEND Internal Medicine Infectious Disease
DX: N39.0 Urinary tract infection, site not specified (principal); B96.20 Unspecified Escherichia coli [E. coli] as the cause of diseases classified elsewhere; Z16.12 Extended spectrum beta lactamase (ESBL) resistance
CPT/HCPCS: 96365

== ENCOUNTER 2024-03-10 12:42 | Day surgery (SDC) | payer OTHER ==
[2024-03-10 12:58] VITALS: RESP 18; TEMP 97.9
[2024-03-10] MEDS: ERTAPENEM SODIUM 1 GM in SODIUM CHLORIDE 50 ML IVPB ONE (13:09)
[2024-03-10 15:39] VITALS: BP 106/50; PULSE 102
== END 2024-03-10 15:00 | disposition home or self-care (01) ==
LOC: FINFUSION 12:42 → FM/S 12:43 → FINFUSION 15:00
PROVIDERS: ATTEND Internal Medicine Infectious Disease
DX: N39.0 Urinary tract infection, site not specified (principal); B96.20 Unspecified Escherichia coli [E. coli] as the cause of diseases classified elsewhere; Z16.12 Extended spectrum beta lactamase (ESBL) resistance
CPT/HCPCS: 96365